=== PATIENT | female | born 1940 | race Caucasian/White ===

== ENCOUNTER 2018-02-08 13:36 | Inpatient (IN) ==
[2018-02-08] MEDS ORDERED: Isovue-370 500 ML INFUS..BTL IV ONE (13:40)
[2018-02-08] MEDS ORDERED: 0.9 % Sodium Chloride 500 ML IVC ONE (13:40)
--- NOTE | 2018-02-08 13:59 | Emergency Department Note ---
Disposition Clinical Impression: Generalized weakness, Impaired ambulation, History of lung cancer Dyspnea Qualifiers: Dyspnea type: unspecified Qualified Code(s): R06.00 - Dyspnea, unspecified Disposition: Admitted As Inpatient Condition: Good Referrals: David Garza MD [Primary Care Provider] - Forms: ED Satisfaction Letter Time of Disposition: 18:57 SOB HPI - General Chief Complaint: ED Weakness Stated Complaint: SOB Time Seen by Provider: 02/08/18 13:39 Source: patient, EMS Mode of arrival: EMS Limitations: no limitations Nursing Notes Reviewed: Yes Vital Signs Reviewed: Yes - History of Present Illness Patient is a 77-year-old female with past medical history of lung cancer. She uses 2 L nasal cannula oxygen as needed at home. She follows with physician in [place], had most recent chemotherapy about a month ago. She presents today due to generalized weakness, shortness of breath. Patient was satting 92% on room air, satting around 96% on 2 L nasal cannula which is her home dosing. She currently complains of generalized weakness, shortness breath. Denies any chest discomfort. Denies any increased cough, increased sputum production above baseline. Denies any other fevers, nausea, vomiting, diarrhea, abdominal pain. Daughter is present and states that her main concern was generalized weakness because patient cannot ambulate as well as she could at home previously , has worsened gradually over the past few days. - Related Data Home Medications Medication Instructions Recorded Confirmed Alendronate Sodium [Fosamax] 70 mg PO HAN 07/26/16 02/08/18 Enalapril Maleate [Vasotec] 10 mg PO BID PRN 07/26/16 02/08/18 Ergocalciferol (VITAMIN D2) 50,000 unit PO WE 07/26/16 02/08/18 [Vitamin D2] Metoprolol Succinate 100 mg PO DAILY PRN 07/26/16 02/08/18 Omeprazole [PriLOSEC] 20 mg PO DAILY 07/26/16 02/08/18 Potassium Chloride [K-Tab ER] 20 meq PO DAILY 07/26/16 02/08/18 Pravastatin Sodium [Pravachol] 20 mg PO HS 07/26/16 02/08/18 Topiramate [Topamax] 25 mg PO HS 07/26/16 02/08/18 clonazePAM [Klonopin] 0.5 mg PO BID PRN 07/26/16 02/08/18 Previous Rx's Medication Instructions Recorded Docusate [Colace] 100 mg PO BID PRN #60 capsule 01/15/18 OxyCODONE Immed Rel [Roxicodone 10 10 mg PO Q3-4H PRN 20 Days #120 tab 01/15/18 MG] Ciprofloxacin [Cipro] 250 mg PO BID #20 tablet 01/19/18 Ondansetron [Zofran] 8 mg PO Q8HR PRN 30 Days #90 tablet 01/29/18 Allergies Allergy/AdvReac Type Severity Reaction Status Date / Time No Known Allergies Allergy Unverified 12/11/17 11:26 All systems ED: reviewed and negative except as stated. Constitutional: Denies: fever Cardiovascular: Denies: chest pain Respiratory: Reports: dyspnea. Denies: cough Gastrointestinal: Denies: abdominal pain, nausea, vomiting, diarrhea Neurological: Denies: headache, weakness, numbness Past Medical History - Past Medical History Attestation: Yes The following information was validated with the patient. Source: patient Medical history: Reports: arthritis, cancer, hypertension, osteoporosis, TIA, other Psychiatric history: Reports: no psych history - Social History Smoking Status: Current some day smoker Smokeless Tobacco Status: Yes (pipe) Alcohol use: Reports: none Drug use: Reports: none Physical Exam - General Limitations: no limitations General appearance: alert, in no apparent distress - Head Head exam: atraumatic, normocephalic, normal inspection - Eye Eye exam: Present: normal appearance, PERRL, EOMI - ENT ENT exam: normal exam, normal oropharynx, mucous membranes moist - Neck Neck exam: Present: normal inspection, full ROM, trachea midline - Chest Chest inspection: Present: normal inspection, symmetric chest wall rise - Respiratory Respiratory exam: Present: normal lung sounds bilaterally - Cardiovascular Cardiovascular exam: Present: normal rhythm, tachycardia, normal heart sounds - Abdominal Exam Abdominal exam: Present: soft, Non-Tender. Absent: tenderness, distention, guarding, rebound, rigidity - Extremities Exam Extremities exam: Present: normal inspection, full ROM. Absent: tenderness, pedal edema - Neurological Exam Neurological exam: Present: alert, oriented X3, CN II-XII intact. Absent: motor sensory deficit - Psychiatric Psychiatric exam: Present: normal affect, normal mood - Skin Skin exam: Present: warm, dry, intact, normal color Course Course Narrative: Basic labs, EKG, troponin level ordered. Chest x-ray shows no acute cardiopulmonary process. CTA of the chest was ordered for assessment of PE. CTA shows: IMPRESSION: No evidence of pulmonary embolism. There is persistent partial collapse of the medial right upper lobe with soft tissue density in the right suprahilar region. Findings improved compared to prior studies, consistent with known malignancy. There are a few new indeterminate noncalcified nodules measuring up to 9 mm. Findings may represent mixed treatment response with new metastatic disease. No major lab abnormalities. Patient given duoneb x3, solumedrol. Still requiring 4L NC O2. Patient does generally weak and does not feel safe with ambulation. We will admit for further care at this time. Chest CTA 02/08/18 13:40 IMPRESSION: No evidence of pulmonary embolism. There is persistent partial collapse of the medial right upper lobe with soft tissue density in the right suprahilar region. Findings improved compared to prior studies, consistent with known malignancy. There are a few new indeterminate noncalcified nodules measuring up to 9 mm. Findings may represent mixed treatment response with new metastatic disease. D/ / Jessica Winston MD / Jessica Winston MD Interpreting Provider: Jessica Winston MD Chest X-Ray 02/08/18 13:40 IMPRESSION: No acute cardiopulmonary disease. Chronic postsurgical/treatment changes in the right lung. D/ / Kota Wallace MD / Kota Wallace MD Interpreting Provider: Kota Wallace MD Chest X-Ray 02/08/18 13:40 IMPRESSION: No acute cardiopulmonary disease. Chronic postsurgical/treatment changes in the right lung. D/ / Kota Wallace MD / Kota Wallace MD Interpreting Provider: Kota Wallace MD Vital Signs Temperature 99.1 F 02/08/18 13:37 Pulse Rate 119 02/08/18 13:37 Respiratory Rate 16 02/08/18 13:37 Blood Pressure 112/71 02/08/18 13:37 O2 Sat by Pulse Oximetry 94 02/08/18 13:37 Temperature 99.1 F 02/08/18 13:37 Pulse Rate 114 02/08/18 18:06 Respiratory Rate 20 02/08/18 18:06 Blood Pressure 116/75 02/08/18 18:06 O2 Sat by Pulse Oximetry 97 02/08/18 18:06 Oxygen Delivery Oxygen Delivery Aerosol Mask Shortness of Breath/Dyspnea - MDM Narrative Medical decision making narrative: Basic labs, EKG, troponin level ordered. Chest x-ray shows no acute cardiopulmonary process. CTA of the chest was ordered for assessment of PE. CTA shows: IMPRESSION: No evidence of pulmonary embolism. There is persistent partial collapse of the medial right upper lobe with soft tissue density in the right suprahilar region. Findings improved compared to prior studies, consistent with known malignancy. There are a few new indeterminate noncalcified nodules measuring up to 9 mm. Findings may represent mixed treatment response with new metastatic disease. No major lab abnormalities. Patient given duoneb x3, solumedrol. Still requiring 4L NC O2. Patient does generally weak and does not feel safe with ambulation. We will admit for further care at this time. - Medical Records Medical records reviewed: Yes I reviewed the patient's medical records. - Lab Data Lab results reviewed: Yes I reviewed the patient's lab results. Result diagrams: 02/08/18 13:50 02/08/18 13:50 Lab Results 02/08/18 02/08/18 02/08/18 Range/Units 13:40 13:40 13:41 WBC (4.3-11.1) K/mcL RBC (3.82-4.97) M/mcL Hgb (11.5-15.4) g/dL Hct (35.3-44.9) % MCV (83.0-100.0) fL MCH (28.0-33.3) pg MCHC (31.6-35.5) g/dL RDW (11.5-14.5) % Plt Count (140-400) K/mcL MPV (9.4-12.4) fL Immature Gran % (0-4) % Seg Neutrophils % % Lymphocytes % % Monocytes % % Eosinophils % % Basophils % % Neutrophils # (1.6-8.9) K/mcL Lymphocytes # (0.6-4.6) K/mcL Monocytes # (0.0-1.3) K/mcL Eosinophils # (0.0-0.6) K/mcL Basophils # (0.0-0.2) K/mcL PT 11.2 (9.4-12.1) Seconds INR 1.0 APTT 38.4 H (26.0-36.0) Seconds Sodium (136-145) mEq/L Potassium (3.5-5.1) mEq/L Chloride (98-107) mEq/L Carbon Dioxide (23-29) mEq/L BUN (8-23) mg/dL Creatinine (0.60-1.20) mg/dL Est GFR ( Amer) (> 60) Est GFR (Non-Af Amer) (> 60) BUN/Creatinine Ratio (6-26) Glucose (70-105) mg/dL Calculated Osmolality (280-300) Calcium (8.6-10.3) mg/dL Total Bilirubin 0.3 (0.3-1.0) mg/dL Direct Bilirubin 0.1 (0.0-0.2) mg/dL Indirect Bilirubin 0.2 (0.0-1.2) mg/dL AST 61 H (13-39) Units/L ALT 41 (7-52) Units/L Alkaline Phosphatase 95 (34-104) Units/L Troponin I (< 0.04) ng/mL B-Natriuretic Peptide 18 (Less than 100) pg/mL Serum Total Protein 6.5 (6.4-8.9) g/dL Albumin 3.7 (3.5-5.7) g/dL Globulin 2.8 (2.4-3.5) g/dL Albumin/Globulin Ratio 1.3 (1.1-2.2) Lipase 362 H (11-82) Units/L Urine Color (Yellow) Urine Clarity (Clear) Urine pH (5.0-8.0) pH Units Ur Specific [place] (1.010-1.025) Urine Protein (Neg-Trace) mg/dL Urine Glucose (UA) (Normal) mg/dL Urine Ketones (Negative) mg/dL Urine Blood (Negative) Urine Nitrite (Negative) Urine Bilirubin (Negative) Urine Urobilinogen (Normal) mg/dL Ur Leukocyte Esterase (Negative) Urine Microscopic RBC (0-3) per hpf Urine Microscopic WBC (0-3) per hpf Ur Squamous Epith Cells (None-Few) per lpf Urine Bacteria (None-Few) per hpf Hyaline Casts (None-Few) per lpf Ur Culture Indicated? (NO) 02/08/18 02/08/18 02/08/18 Range/Units 13:50 13:50 14:37 WBC 5.7 (4.3-11.1) K/mcL RBC 3.73 L (3.82-4.97) M/mcL Hgb 11.8 (11.5-15.4) g/dL Hct 37.0 (35.3-44.9) % MCV 99.2 (83.0-100.0) fL MCH 31.6 (28.0-33.3) pg MCHC 31.9 (31.6-35.5) g/dL RDW 15.2 H (11.5-14.5) % Plt Count 290 (140-400) K/mcL MPV 9.6 (9.4-12.4) fL Immature Gran % 1.4 (0-4) % Seg Neutrophils % 84.5 % Lymphocytes % 7.3 % Monocytes % 6.3 % Eosinophils % 0.0 % Basophils % 0.5 % Neutrophils # 4.8 (1.6-8.9) K/mcL Lymphocytes # 0.4 L (0.6-4.6) K/mcL Monocytes # 0.4 (0.0-1.3) K/mcL Eosinophils # 0.0 (0.0-0.6) K/mcL Basophils # 0.0 (0.0-0.2) K/mcL PT (9.4-12.1) Seconds INR APTT (26.0-36.0) Seconds Sodium 132 L (136-145) mEq/L Potassium 4.9 (3.5-5.1) mEq/L Chloride 103 (98-107) mEq/L Carbon Dioxide 18 L (23-29) mEq/L BUN 18 (8-23) mg/dL Creatinine 0.74 (0.60-1.20) mg/dL Est GFR ( Amer) > 60 (> 60) Est GFR (Non-Af Amer) > 60 (> 60) BUN/Creatinine Ratio 24 (6-26) Glucose 89 (70-105) mg/dL Calculated Osmolality 275 L (280-300) Calcium 9.5 (8.6-10.3) mg/dL Total Bilirubin (0.3-1.0) mg/dL Direct Bilirubin (0.0-0.2) mg/dL Indirect Bilirubin (0.0-1.2) mg/dL AST (13-39) Units/L ALT (7-52) Units/L Alkaline Phosphatase (34-104) Units/L Troponin I < 0.03 (< 0.04) ng/mL B-Natriuretic Peptide (Less than 100) pg/mL Serum Total Protein (6.4-8.9) g/dL Albumin (3.5-5.7) g/dL Globulin (2.4-3.5) g/dL Albumin/Globulin Ratio (1.1-2.2) Lipase (11-82) Units/L Urine Color Yellow (Yellow) Urine Clarity Clear (Clear) Urine pH 6.0 (5.0-8.0) pH Units Ur Specific [place] 1.021 (1.010-1.025) Urine Protein 30 H (Neg-Trace) mg/dL Urine Glucose (UA) Normal (Normal) mg/dL Urine Ketones 40 H (Negative) mg/dL Urine Blood Negative (Negative) Urine Nitrite Negative (Negative) Urine Bilirubin Small H (Negative) Urine Urobilinogen Normal (Normal) mg/dL Ur Leukocyte Esterase Negative (Negative) Urine Microscopic RBC 0-3 (0-3) per hpf Urine Microscopic WBC 0-3 (0-3) per hpf Ur Squamous Epith Cells Moderate H (None-Few) per lpf Urine Bacteria None Seen (None-Few) per hpf Hyaline Casts None Seen (None-Few) per lpf Ur Culture Indicated? NO (NO) - Radiology Data Radiology results reviewed: Yes I reviewed the patient's radiology results. Chest CTA 02/08/18 13:40 IMPRESSION: No evidence of pulmonary embolism. There is persistent partial collapse of the medial right upper lobe with soft tissue density in the right suprahilar region. Findings improved compared to prior studies, consistent with known malignancy. There are a few new indeterminate noncalcified nodules measuring up to 9 mm. Findings may represent mixed treatment response with new metastatic disease. D/ / Jessica Winston MD / Jessica Winston MD Interpreting Provider: Jessica Winston MD Chest X-Ray 02/08/18 13:40 IMPRESSION: No acute cardiopulmonary disease. Chronic postsurgical/treatment changes in the right lung. D/ / Kota Wallace MD / Kota Wallace MD Interpreting Provider: Kota Wallace MD - EKG Data EKG attestation: Yes I reviewed and interpreted this EKG. EKG results narrative: 02/08/2018 at 13:52. Sinus tachycardia. Rate 113. SC 124. QRS 74. QTC 396. Mild left axis deviation. No acute ST elevation or depression. S.B.A.R. - S.B.A.R. Situation: Demographics, MOA Background: Presenting Complaint, Relevant PMH, Meds, & Allergies Assessment: Vital Signs, Course and respsone to treatment, Exam Concerns, Patient/Family Expectation, Pertinant Lab Results Recommendation: Barrier(s) to disposition, Recommendation based on pending studies, treatments, or consults S.B.A.R. Report Given to: Dr. Hammond
--- NOTE | 2018-02-08 14:04 | Emergency Department Note ---
Disposition Clinical Impression: Dyspnea Qualifiers: Dyspnea type: unspecified Qualified Code(s): R06.00 - Dyspnea, unspecified Disposition: Admitted As Inpatient Referrals: David Garza MD [Primary Care Provider] - Forms: ED Satisfaction Letter General Adult HPI - General Chief complaint: ED Weakness Stated complaint: SOB Time Seen by Provider: 02/08/18 13:39 Source: patient, EMS Mode of arrival: EMS Limitations: no limitations - History of Present Illness Pain Scale: 0 - Related Data Home Medications Medication Instructions Recorded Confirmed Alendronate Sodium [Fosamax] 70 mg PO HAN 07/26/16 01/15/18 Clopidogrel [Plavix] 75 mg PO DAILY 07/26/16 01/15/18 Enalapril Maleate [Vasotec] 10 mg PO BID 07/26/16 01/15/18 Ergocalciferol (VITAMIN D2) 50,000 unit PO WE 07/26/16 01/15/18 [Vitamin D2] Metoprolol Succinate 100 mg PO DAILY 07/26/16 01/15/18 Omeprazole [PriLOSEC] 20 mg PO DAILY 07/26/16 01/15/18 Potassium Chloride [K-Tab ER] 20 meq PO DAILY 07/26/16 01/15/18 Pravastatin Sodium [Pravachol] 20 mg PO HS 07/26/16 01/15/18 Topiramate [Topamax] 25 mg PO HS 07/26/16 01/15/18 clonazePAM [Klonopin] 0.5 mg PO TID PRN 07/26/16 01/15/18 Previous Rx's Medication Instructions Recorded Promethazine [Phenergan] 12.5 - 25 mg PO Q6HR PRN #30 tablet 12/11/17 Docusate [Colace] 100 mg PO BID PRN #60 capsule 01/15/18 OxyCODONE Immed Rel [Roxicodone 10 10 mg PO Q3-4H PRN 20 Days #120 tab 01/15/18 MG] Sennosides [Senna] 8.6 mg PO 1-2XD PRN #60 tablet 01/15/18 Ciprofloxacin [Cipro] 250 mg PO BID #20 tablet 01/19/18 Ondansetron [Zofran] 8 mg PO Q8HR PRN 30 Days #90 tablet 01/29/18 Allergies Allergy/AdvReac Type Severity Reaction Status Date / Time No Known Allergies Allergy Unverified 12/11/17 11:26 Past Medical History - Past Medical History Medical history: Reports: arthritis, cancer, hypertension, osteoporosis, TIA, other Psychiatric history: Reports: no psych history - Social History Smoking Status: Current some day smoker Smokeless Tobacco Status: Yes (pipe) Alcohol use: Reports: none Drug use: Reports: none Physical Exam - General Limitations: no limitations General appearance: alert, in no apparent distress Course Vital Signs Temperature 99.1 F 02/08/18 13:37 Pulse Rate 119 02/08/18 13:37 Respiratory Rate 16 02/08/18 13:37 Blood Pressure 112/71 02/08/18 13:37 O2 Sat by Pulse Oximetry 94 02/08/18 13:37 Temperature 99.1 F 02/08/18 13:37 Pulse Rate 119 02/08/18 13:37 Respiratory Rate 16 02/08/18 13:37 Blood Pressure 112/71 02/08/18 13:37 O2 Sat by Pulse Oximetry 94 02/08/18 13:37 Oxygen Delivery Oxygen Delivery Room Air Attestation Statement - Attestation Attestation: I examined this patient and my medical decision-making was reviewed with the Resident Physician. I agree with the documented findings, disposition and treatment plan as described except to the extent set forth below. 77 year old femael with history of lung cancer presnts to the ED with weakness, dyspnea, productive cough with mild blood streaking and initial pulse ox when EMS rrived was 90% on RA and Hr of 60s. She is tahycardiac, and is 93% on 2LNC here. We will do cardiopulmonary sepsis wokrup now and CTA chest to rule out PE vs pneumonia. She will be admitted to medicine.
[2018-02-08 14:09] LABS: Basophils % 0.5 %; Hemoglobin 11.8 g/dL (11.5-15.4); Immature Granulocytes % 1.4 % (0-4); Lymphocytes # 0.4 K/mcL (0.6-4.6); Lymphocytes % 7.3 %; Mean Corpuscular HGB Conc 31.9 g/dL (31.6-35.5); Mean Corpuscular Hemoglobin 31.6 pg (28.0-33.3); Mean Corpuscular Volume 99.2 fL (83.0-100.0); Mean Platelet Volume 9.6 fL (9.4-12.4); Monocytes # 0.4 K/mcL (0.0-1.3); Monocytes % 6.3 %; Neutrophils # 4.8 K/mcL (1.6-8.9); Platelet Count 290 K/mcL (140-400); Red Blood Count 3.73 M/mcL (3.82-4.97); Red Cell Distribution Width 15.2 % (11.5-14.5); Segmented Neutrophils % 84.5 %
[2018-02-08 14:17] LABS: Prothrombin Time 11.2 Seconds (9.4-12.1)
[2018-02-08 14:20] LABS: Activated Partial Thrombo Time 38.4 Seconds (26.0-36.0)
[2018-02-08 14:41] LABS: Troponin I < 0.03 ng/mL (< 0.04)
[2018-02-08 14:44] LABS: Albumin 3.7 g/dL (3.5-5.7); Albumin/Globulin Ratio 1.3 (1.1-2.2); Bilirubin,Direct 0.1 mg/dL (0.0-0.2); Bilirubin,Indirect 0.2 mg/dL (0.0-1.2); Bilirubin,Total 0.3 mg/dL (0.3-1.0); Globulin 2.8 g/dL (2.4-3.5); Total Protein 6.5 g/dL (6.4-8.9)
[2018-02-08 14:46] LABS: BUN/Creatinine Ratio 24 (6-26); Blood Urea Nitrogen 18 mg/dL (8-23); Calcium 9.5 mg/dL (8.6-10.3); Carbon Dioxide 18 mEq/L (23-29); Chloride 103 mEq/L (98-107); Glucose 89 mg/dL (70-105); Osmolality,Calculated 275 (280-300); Potassium 4.9 mEq/L (3.5-5.1); Sodium 132 mEq/L (136-145); eGFR For African Americans > 60 (> 60); eGFR For Non-African Americans > 60 (> 60)
[2018-02-08 14:46] LABS: Bilirubin,Urine Small (Negative); Blood,Urine Negative (Negative); Clarity,Urine Clear (Clear); Color,Urine Yellow (Yellow); Glucose,Urine (UA) Normal (Normal); Ketones,Urine 40 mg/dL (Negative); Leukocyte Esterase,Urine Negative (Negative); Nitrite,Urine Negative (Negative); Protein,Urine 30 mg/dL (Neg-Trace); Specific Gravity,Urine 1.021 (1.010-1.025); Urobilinogen,Urine Normal (Normal)
[2018-02-08 14:50] LABS: Bacteria,Urine None Seen per hpf (None-Few); Hyaline Casts,Urine None Seen per lpf (None-Few); RBC,Urine 0-3 per hpf (0-3); Squamous Epithelial Cell,Urine Moderate per lpf (None-Few); WBC,Urine 0-3 per hpf (0-3)
[2018-02-08] MEDS ORDERED: *HR* FentaNYL (PF) 100 MCG/2 ML VIAL IVP ONE ×2 (16:17→18:36)
[2018-02-08] MEDS ORDERED: *HR* FentaNYL (PF) 100 MCG/2 ML VIAL ONE (16:19)
[2018-02-08] MEDS ORDERED: methylPREDNISolone 125 MG/2 ML VIAL IVP ONE (17:35)
[2018-02-08] MEDS ORDERED: Ipratropium/Albuterol Neb 3 ML IH ONE (17:35)
[2018-02-08] MEDS ORDERED: Naloxone 0.4 MG/ML INJ IVP PRN (20:26)
--- NOTE | 2018-02-08 20:32 | Internal Med History&Physical ---
Date of Encounter: 02/08/18 Time of Encounter: 20:30 Internal Medicine - H&P: HPI Chief complaint: Abdominal pain, shortness of breath Admitted From: Emergency Dept History of present illness: Ms. Stevens is a 77 year old female with a past medical history of small cell cancer of the lung and chronic respiratory failure using 2 L at home, osteoporosis, GERD, anxiety, came to the emergency room complaining of severe generalized weakness that started 2 days ago accompanied by shortness of breath and severe epigastric tenderness, saturation of oxygen also has dropped down to 88% and has been complaining of a dry cough. Lipase was 362 sodium was 132 AST 61 CO2 18 heartrate was 118 the pressure was 96/52 the patient has been complaining of constant nausea, not been able to eat. Feels so weak at the moment that is not able to stand up. Was given a dose of Solu-Medrol in the emergency room CT scan of the chest was performed and showed: No evidence of pulmonary embolism. There is persistent partial collapse of the medial right upper lobe with soft tissue density in the right suprahilar region. Findings improved compared to prior studies, consistent with known malignancy. There are a few new indeterminate noncalcified nodules measuring up to 9 mm. Findings may represent mixed treatment response with new metastatic disease. Past Med Surg Social Fam HX - Past Medical History Medical history: arthritis, cancer (small cell carcinoma of the lung status post chemotherapy 3 months ago, chronic respiratory failure with COPD is seen 2 L at home, left CVA, TIAs, osteoarthritis, tobacco use, ileus in the past, osteoporosis, GERD, hyperlipidemia, hypertension, anxiety), hypertension, osteoporosis, TIA, other Additional medical history: Polio Psychiatric history: no psych history - Past Surgical History Surgical History: hysterectomy, other (Left femur fracture,) Additional surgical history: knee sx - Social History Smoking Status: Current some day smoker Packs per day: 5 cigarettes daily Smokeless Tobacco Status: Yes (pipe) Alcohol use: none Drug use: none - Family History Mother Hx Family Cardiac Disorders: Yes Hx Family Cancer: Yes - Additional Family History Additional family history: Father with CHF Internal Medicine - H&P: Meds Alendronate Sodium [Fosamax] 70 mg PO HAN 07/26/16 [History] Enalapril Maleate [Vasotec] 10 mg PO BID PRN 07/26/16 [History] Ergocalciferol (VITAMIN D2) [Vitamin D2] 50,000 unit PO WE 07/26/16 [History] Metoprolol Succinate 100 mg PO DAILY PRN 07/26/16 [History] Omeprazole [PriLOSEC] 20 mg PO DAILY 07/26/16 [History] Potassium Chloride [K-Tab ER] 20 meq PO DAILY 07/26/16 [History] Pravastatin Sodium [Pravachol] 20 mg PO HS 07/26/16 [History] Topiramate [Topamax] 25 mg PO HS 07/26/16 [History] clonazePAM [Klonopin] 0.5 mg PO BID PRN 07/26/16 [History] Docusate [Colace] 100 mg PO BID PRN #60 capsule 01/15/18 [Rx] OxyCODONE Immed Rel [Roxicodone 10 MG] 10 mg PO Q3-4H PRN 20 Days #120 tab 01/15 [Rx] Ciprofloxacin [Cipro] 250 mg PO BID #20 tablet 01/19/18 [Rx] Ondansetron [Zofran] 8 mg PO Q8HR PRN 30 Days #90 tablet 01/29/18 [Rx] 3 Allergy/AdvReac Type Severity Reaction Status Date / Time No Known Allergies Allergy Unverified 12/11/17 11:26 All Systems PM: A 10-system review of systems was performed and is negative for pertinent findings except as documented above in the HPI. Review of systems: Abdominal pain, weakness, other systems out of the 10 reviewed were negative - Constitutional Vitals: Temp Pulse Resp BP Pulse Ox 99.1 F 118 18 96/58 94 02/08/18 13:37 02/08/18 19:48 02/08/18 19:48 02/08/18 19:48 02/08/18 19:48 General appearance: Present: A&O X 3 (Very dehydrated, dry mucosa) - Head Head exam: Present: atraumatic, normocephalic - Eye Eye exam: Present: PERRL, conjuntiva pink, sclera anicteric Pupils: Present: PERRL - Neck Neck exam general surgery: Present: supple, trachea midline. Absent: lymphadenopathy - Respiratory Respiratory exam: Present: CTAB. Absent: accessory muscle use, rales, rhonchi, wheezes - Cardiovascular Cardiovascular exam: Present: RRR, +S1, +S2, tachycardia. Absent: diastolic murmur, gallop, rubs, systolic murmur - GI/Abdominal GI/Abdominal exam: Present: distended, normal bowel sounds, soft, tenderness ( Epigastric tenderness), no peritoneal signs - Extremities Exam Extremities exam: Present: warm, radial pulses palpable and symmetrical. Absent : calf tenderness, cyanotic, pedal edema - Neurological Exam Neurological exam: Present: CN II-XII intact, oriented X3, no focal deficits. Absent: pronater drift, facial droop, speech deficit - Skin Skin exam: Present: dry, intact Additional comments: Severe generalized weakness Internal Med - H&P Results - Labs CBC & Chem 7: 02/08/18 13:50 02/08/18 13:50 - Assessment and plan (1) Acute and chronic respiratory failure with hypoxia Current Visit: Yes Status: Acute Assessment and plan: Acute on chronic respiratory failure possibly secondary to metastatic disease Dexamethasone IV Oxygen therapy Consider pulmonary consultation not improving Protonix IV for GI prophylaxis and subcutaneous tenderness heparin for DVT prophylaxis. The patient will be admitted as inpatient, expected stay more than 2 midnights. DNR CC arrest DNI. Time spent on this admission 40 minutes (2) Acute pancreatitis Current Visit: Yes Status: Acute Assessment and plan: Acute pancreatitis with severe dehydration, hypotension and tachycardia Nothing by mouth, IV fluids Pain control, order CT scan of the abdomen with oral contrast Zofran as needed, recheck lipase in the morning Qualifiers: Pancreatitis type: unspecified pancreatitis type Acute pancreatitis complication: unspecified Qualified Code(s): K85.90 - Acute pancreatitis without necrosis or infection, unspecified (3) Generalized weakness Current Visit: Yes Status: Acute Assessment and plan: Secondary to dehydration and hypoxia (4) Impaired ambulation Current Visit: Yes Status: Acute (5) Protein-energy malnutrition Current Visit: No Status: Acute Qualifiers: Protein-calorie malnutrition severity: unspecified severity Qualified Code( s): E46 - Unspecified protein-calorie malnutrition (6) Small cell lung cancer Current Visit: No Status: Acute (7) HTN (hypertension) Current Visit: No Status: Chronic Assessment and plan: Hold enalapril due to hypotension Qualifiers: Hypertension type: essential hypertension Qualified Code(s): I10 - Essential (primary) hypertension (8) Hyponatremia Current Visit: No Status: Resolved (9) Tobacco abuse Current Visit: Yes Status: Acute Assessment and plan: Smoking cessation counseling - Time Spent With Patient Total time spent is greater than 50% in coordination of care (as documented) at patient's floor/unit and/or counseling patient:
[2018-02-08] MEDS: D5% in 0.45% NACL 1,000 ML IVC SCH (21:00)
[2018-02-08] MEDS: Ondansetron 4 MG/2 ML VIAL IVP PRN (21:03)
[2018-02-09] MEDS: Pantoprazole 40 MG VIAL IVP SCH ×2 (01:31→05:44)
[2018-02-09] MEDS: Dexamethasone 4 MG/ML VIAL IVP SCH ×3 (01:31→19:45)
[2018-02-09] MEDS: Topiramate 25 MG TABLET PO SCH ×2 (01:32→19:45)
[2018-02-09 04:17] LABS: Hematocrit 32.1 % (35.3-44.9); Hemoglobin 10.7 g/dL (11.5-15.4); Mean Corpuscular HGB Conc 33.3 g/dL (31.6-35.5); Mean Corpuscular Hemoglobin 32.8 pg (28.0-33.3); Mean Corpuscular Volume 98.5 fL (83.0-100.0); Mean Platelet Volume 9.6 fL (9.4-12.4); Platelet Count 273 K/mcL (140-400); Red Blood Count 3.26 M/mcL (3.82-4.97); Red Cell Distribution Width 15.1 % (11.5-14.5)
[2018-02-09 04:28] LABS: BUN/Creatinine Ratio 22 (6-26); Blood Urea Nitrogen 12 mg/dL (8-23); Calcium 8.8 mg/dL (8.6-10.3); Carbon Dioxide 19 mEq/L (23-29); Chloride 104 mEq/L (98-107); Chol/HDL Ratio 5.4 (0-4.9); Cholesterol 167 mg/dL (< 200); Glucose 158 mg/dL (70-105); HDL Cholesterol 31 mg/dL (40-59); LDL Cholesterol,Calculated 110 mg/dL (0-99); Lipase 236 Units/L (11-82); Magnesium 1.7 mg/dL (1.6-2.6); Osmolality,Calculated 275 (280-300); Potassium 4.6 mEq/L (3.5-5.1); Sodium 131 mEq/L (136-145); Triglycerides 132 mg/dL (< 150); eGFR For African Americans > 60 (> 60); eGFR For Non-African Americans > 60 (> 60)
[2018-02-09] MEDS: *HR* Heparin 5,000 UNIT/ML VIAL SQ SCH ×2 (05:44→18:23)
[2018-02-09] MEDS: D5% in 0.45% NACL 1,000 ML IVC SCH ×2 (09:31→23:58)
[2018-02-09] MEDS: Ondansetron 4 MG/2 ML VIAL IVP PRN (09:37)
[2018-02-09] MEDS: clonazePAM 0.5 MG TABLET PO PRN (09:44)
--- NOTE | 2018-02-09 12:07 | Internal Med Progress Note ---
Date of Encounter: 02/09/18 Time of Encounter: 12:04 - Assessment and plan (1) Acute and chronic respiratory failure with hypoxia Current Visit: Yes Status: Acute Assessment and plan: Acute on chronic respiratory failure possibly secondary to metastatic disease Patient reports chest or status is improving She is now on 2 L nasal cannula, lungs CTA/diminished throughout AP and L Continue Dexamethasone IV story support per nasal cannula, titrate when necessary to maintain SPO2 greater than 92% Protonix IV for GI prophylaxis and subcutaneous heparin for DVT prophylaxis. (2) Impaired ambulation Current Visit: Yes Status: Acute Assessment and plan: Continues report impaired ambulation Patient reporting she has been able to ambulate for the last 2 days Additionally, reporting a functional decline Severely calorie deficient and malnutrition due to cancer; although also has a diagnosis of acute pancreatitis and dehydration which is also contributing Consult PT/OT for evaluation of functional capacity and further recommendations (3) HTN (hypertension) Current Visit: No Status: Chronic Assessment and plan: Patient hypotensive, hold anti-HTN medications at this time, continue to closely monitor consider restarting anti-HTN medications tomorrow if BP improves Qualifiers: Hypertension type: essential hypertension Qualified Code(s): I10 - Essential (primary) hypertension (4) Hyponatremia Current Visit: No Status: Resolved Assessment and plan: Hyponatremia, serum sodium of 131, asymptomatic. Continue to monitor (5) Protein-energy malnutrition Current Visit: No Status: Acute Assessment and plan: History of cancer, reporting decreased appetite over the last couple of months with weight loss Acute pancreatitis identified per CT and elevated lipase on labs Patient does not wish to be nothing by mouth as stated above Consult to nutritional services Supplementation with Ensure Qualifiers: Protein-calorie malnutrition severity: unspecified severity Qualified Code( s): E46 - Unspecified protein-calorie malnutrition (6) Small cell lung cancer Current Visit: No Status: Acute Assessment and plan: History of small cell lung cancer. Being treated at [place] [facility] Last appointment 01/15/[address] Duffy Last [place] [address] cycles New indeterminate nodule suggestive of mixed treatment response or new metastatic disease noted on CT of chest Oncology to see in consultation (7) Generalized weakness Current Visit: Yes Status: Acute Assessment and plan: Secondary to dehydration and hypoxia Continuing to report profound weakness Multiple sclerotic lesions found and pelvis and right femur; similar to previous findings New indeterminate nodules digesting mixed treatment response or new metastatic disease Cysts with decreased appetite, weight loss, and functional decline could be result of progression of cancer (8) Acute pancreatitis Current Visit: Yes Status: Acute Assessment and plan: Acute pancreatitis with severe dehydration, hypotension and tachycardia on arrival Dehydration improving, with IVF Lipase 236 today Reporting nausea is improving Continue pain control measures CT scan of the abdomen shows mild stranding adjacent to the pancreatic head Continue antiemetics as needed D/W pancreatitis and nothing by mouth status with patient and family The patient and family does not wish for her to remain nothing by mouth due to severe calorie and malnutrition secondary to cancer Adding Ensure supplementation and regular diet as tolerated Should nausea/vomiting resume and/or lipase increase will return patient to nothing by mouth status Qualifiers: Pancreatitis type: unspecified pancreatitis type Acute pancreatitis complication: unspecified Qualified Code(s): K85.90 - Acute pancreatitis without necrosis or infection, unspecified (9) Tobacco abuse Current Visit: Yes Status: Acute Assessment and plan: Counseled patient on smoking cessation (10) Abnormal finding on CT scan Current Visit: Yes Status: Acute Assessment and plan: CTA CHEST No evidence of pulmonary embolism. There is persistent partial collapse of the medial right upper lobe with soft tissue density in the right suprahilar region. Findings improved compared to prior studies, consistent with known malignancy. There are a few new indeterminate noncalcified nodules measuring up to 9 mm. Findings may represent mixed treatment response with new metastatic disease. D/W oncology; oncology will see in consultation - Time Spent With Patient Total time spent is greater than 50% in coordination of care (as documented) at patient's floor/unit and/or counseling patient: Greater than 35 minutes - Subjective Interval history: Ms. Stevens is a 77-year-old female who came to the emergency room complaining of severe generalized weakness that started 2 days ago accompanied by shortness of breath and severe epigastric tenderness and hypoxia. Found to have SPO2 of 80% in the ED. History of chronic respiratory failure secondary to COPD and small cell carcinoma. Patient's and examined at bedside today. No acute changes overnight. Continued to report shortness of breath reports that it is improving. However her biggest concern is generalized weakness and she is reporting that she is unable to ambulate for the last 2 days. - Constitutional Vitals: Temp Pulse Resp BP Pulse Ox 97.9 F 75 14 93/60 97 02/09/18 11:09 02/09/18 11:09 02/09/18 11:02/09/18 11:09 02/09/18 11:09 General appearance: Present: cachectic, A&O X 3 (Very dehydrated, dry mucosa), pleasant, no acute distress, underweight, loss of weight, answers questions appropriately Exam: Overall ill appearing 77-year-old female with active small cell carcinoma the lung - Head Head exam: Present: atraumatic, normocephalic - Eye Eye exam: Present: EOMI, PERRL, conjuntiva pink, sclera anicteric Pupils: Present: PERRL - Neck Neck exam general surgery: Present: supple, trachea midline. Absent: lymphadenopathy - Respiratory Respiratory exam: Present: decreased breath sounds, CTAB, prolonged expiratory phase. Absent: accessory muscle use, chest wall tenderness, rales, respiratory distress, rhonchi, wheezes, tachypnea - Cardiovascular Cardiovascular exam: Present: RRR, +S1, +S2. Absent: diastolic murmur, gallop, rubs, systolic murmur - GI/Abdominal GI/Abdominal exam: Present: normal bowel sounds, soft, no peritoneal signs. Absent: distended, tenderness - Extremities Exam Extremities exam: Present: warm, radial pulses palpable and symmetrical. Absent : calf tenderness, cyanotic, pedal edema - Expanded Lower Extremities Exam Gait: Present: not tested/not observed - Neurological Exam Neurological exam: Present: CN II-XII intact, oriented X3, no focal deficits. Absent: strengths equal and symetr throughout, pronater drift, facial droop, speech deficit - Expanded Neurological Exam Neuro motor strength exam: LLE: 2/1, RLE: 3 - Psychiatric Psychiatric exam: Present: flat affect - Skin Skin exam: Present: dry, intact Internal Medicine: Result - Labs CBC & Chem 7: 02/09/18 03:49 02/09/18 03:49 Labs: Short CBC 02/09/18 Range/Units 03:49 WBC 5.2 (4.3-11.1) K/mcL Hgb 10.7 L (11.5-15.4) g/dL Hct 32.1 L (35.3-44.9) % Plt Count 273 (140-400) K/mcL [facility] 02/09/18 03:49 Sodium 131 L Potassium 4.6 Chloride 104 Carbon Dioxide 19 L BUN 12 Creatinine 0.55 L Glucose 158 H Calcium 8.8 - ABG Interpretation ABG results: PT/INR, D-dimer PT 11.2 Seconds (9.4-12.1) 02/08/18 13:40 - Impressions Impressions Chest CTA 02/08/18 13:40 IMPRESSION: No evidence of pulmonary embolism. There is persistent partial collapse of the medial right upper lobe with soft tissue density in the right suprahilar region. Findings improved compared to prior studies, consistent with known malignancy. There are a few new indeterminate noncalcified nodules measuring up to 9 mm. Findings may represent mixed treatment response with new metastatic disease. D/ / Jessica Winston MD / Jessica Winston MD Interpreting Provider: Jessica Winston MD Chest X-Ray 02/08/18 13:40 IMPRESSION: No acute cardiopulmonary disease. Chronic postsurgical/treatment changes in the right lung. D/ / Kota Wallace MD / Kota Wallace MD Interpreting Provider: Kota Wallace MD Abdomen/Pelvis CT 02/08/18 20:17 IMPRESSION: 1. Biliary ductal dilatation appears stable from prior imaging. This may be due to underlying acute or chronic pancreatitis. 2. Chronic pancreatitis is noted with inflammation around the pancreatic head suggesting more acute process as well. Correlate with laboratory and clinical findings. 3. Multiple renal cysts, some of which are complex but stable. If indicated, outpatient follow-up CT or MRI may be performed for more sensitive evaluation. 4. Multiple sclerotic lesions in the pelvis and right femur, stable but of uncertain significance. Review of imaging from a prior PET-CT 03/21/2017 suggest that these likely are metastatic in nature. Recommend correlation with history. D/ / Bob Salinas MD / Bob Salinas MD Interpreting Provider: Bob Salinas MD Consult Discharge Plan - Plan Referrals: David Garza MD [Primary Care Provider] -
[2018-02-09] MEDS: OXYCODONE Oral CONC 10 MG/0.5 ML ORAL.SYG SL PRN ×3 (12:25→21:22)
[2018-02-09] MEDS ORDERED: *HR* Promethazine 25 MG/ML VIAL IVP PRN (12:40)
[2018-02-09] MEDS: Melatonin 3 MG TABLET PO PRN (23:54)
[2018-02-10] MEDS: OXYCODONE Oral CONC 10 MG/0.5 ML ORAL.SYG SL PRN ×4 (04:08→17:54)
[2018-02-10] MEDS: Pantoprazole 40 MG VIAL IVP SCH (05:44)
[2018-02-10] MEDS: *HR* Heparin 5,000 UNIT/ML VIAL SQ SCH ×2 (05:44→17:54)
[2018-02-10 06:04] LABS: Basophils % 0.3 %; Eosinophils % 0.2 %; Hematocrit 35.6 % (35.3-44.9); Hemoglobin 11.4 g/dL (11.5-15.4); Immature Granulocytes % 3.5 % (0-4); Lymphocytes # 0.4 K/mcL (0.6-4.6); Lymphocytes % 5.6 %; Mean Corpuscular Hemoglobin 31.8 pg (28.0-33.3); Mean Corpuscular Volume 99.4 fL (83.0-100.0); Mean Platelet Volume 10.6 fL (9.4-12.4); Monocytes # 0.3 K/mcL (0.0-1.3); Neutrophils # 5.3 K/mcL (1.6-8.9); Platelet Count 281 K/mcL (140-400); Red Blood Count 3.58 M/mcL (3.82-4.97); Red Cell Distribution Width 15.3 % (11.5-14.5); Segmented Neutrophils % 85.4 %
--- NOTE | 2018-02-10 06:12 | Internal Med Progress Note ---
Date of Encounter: 02/10/18 Time of Encounter: 06:10 - Assessment and plan (1) Acute and chronic respiratory failure with hypoxia Current Visit: Yes Status: Acute Assessment and plan: Acute on chronic respiratory failure possibly secondary to metastatic disease CTA chest, negative for PE or acute pulmonary process. However CTA did reveal few new indeterminate noncalcified nodules measuring up to 9 mm Findings may represent mixed treatment response with new metastatic disease Patient now on baseline 2 L NC, no respiratory distress lungs CTA/diminished throughout AP and L -Continue Dexamethasone IV, -respiratory support per nasal cannula, -titrate when necessary to maintain SPO2 greater than 92% -Protonix IV for GI prophylaxis -subcutaneous heparin for DVT prophylaxis -Oncology will see in consultation-awaiting further recommendations as to whether or not this is new metastatic disease (2) Impaired ambulation Current Visit: Yes Status: Acute Assessment and plan: BLE strength improving, patient reporting that she does not feel like she is as weakness yesterday We will likely continue to have difficulty with ambulation. Continuing to report intermittent left hip pain; etiology unclear The patient denies any falls or trauma. Should left hip pain continue consider diagnostic imaging as the patient already has metastatic lesions on right femur ; will D/W oncology Out of bed today TID with meals; instructed to increase activity as tolerated with assistance Consult PT/OT for evaluation of functional capacity and further recommendations (3) HTN (hypertension) Current Visit: No Status: Chronic Assessment and plan: Patient with history of hypertension. Had mild hypotension yesterday, BP medications held Hypotension has improved this time Continue holding anti-HTN medications as BP is currently well-controlled continue to closely monitor consider restarting anti-HTN medications as BP continues to improve Qualifiers: Hypertension type: essential hypertension Qualified Code(s): I10 - Essential (primary) hypertension (4) Protein-energy malnutrition Current Visit: No Status: Acute Assessment and plan: History of cancer, reporting decreased appetite over the last couple of months with weight loss Acute pancreatitis identified per CT and elevated lipase on labs, further contributing to protein/calorie malnutrition Reporting nausea improving, regular diet with supplementation as tolerated, consult to nutritional services for further recommendations Qualifiers: Protein-calorie malnutrition severity: unspecified severity Qualified Code( s): E46 - Unspecified protein-calorie malnutrition (5) Small cell lung cancer Current Visit: No Status: Acute Assessment and plan: History of small cell lung cancer. Being treated by Dr. Quintana but follows with Dr. Duffy at [facility] as well. Last appointment 01/15/[address] Duffy. Patient to follow up with Dr. Quintana, on February [id number]. Last [place]atin/[place] [address] cycles. Continue report weight loss and concern for functional decline. New indeterminate nodule suggestive of mixed treatment response or new metastatic disease noted on CT of chest. -Oncology to see in consultation in regards to possible new metastatic disease noted on CT and increasing weight loss and functional decline. -I have offered to consult palliative care; patient and family declined - (6) Generalized weakness Current Visit: Yes Status: Acute Assessment and plan: Reports weakness is much better today Per my examination her bilateral lower Extremity is appear much stronger Weakness likely caused by protein/calorie malnutrition with dehydration 2/to acute pancreatitis Continuing to report a decreased appetite Additionally she is reporting weight loss, and concern for functional decline -PT/OT to see -Nurse navigator consults, addiction social worker consult -Patient offered palliative care consult but declined -Would likely benefit from increase in home services with home PT/OT if able to achieve (7) Acute pancreatitis Current Visit: Yes Status: Acute Assessment and plan: Acute pancreatitis with severe dehydration, hypotension and tachycardia on arrival Dehydration improving, with IVF, Patient reporting that nausea is improving, Lipase improving today 184 CT scan of the abdomen shows mild stranding adjacent to the pancreatic head D/W patient and family that with DX of pancreatitis patient would benefit from NPO diet The patient and family does not wish for her to remain NPO due to severe calorie and malnutrition secondary to cancer Continue Ensure supplementation and diet as tolerated -Continue antiemetics -Continue pain control measures -Change IVF to 0.9% normal saline at 60 mL per hour -With improvement and nausea, encourage oral intake as tolerated Qualifiers: Pancreatitis type: unspecified pancreatitis type Acute pancreatitis complication: unspecified Qualified Code(s): K85.90 - Acute pancreatitis without necrosis or infection, unspecified (8) Tobacco abuse Current Visit: Yes Status: Acute Assessment and plan: Counseled patient on smoking cessation (9) Abnormal finding on CT scan Current Visit: Yes Status: Acute Assessment and plan: CTA CHEST-few indeterminate noncalcified nodules measuring up to 9 mm. Findings may represent mixed treatment response with new metastatic disease. D/W oncology; oncology following in consultation - Time Spent With Patient Total time spent is greater than 50% in coordination of care (as documented) at patient's floor/unit and/or counseling patient: 25 - 35 minutes - Subjective Interval history: Admitted with generalized weakness, shortness of breath or dehydration and nausea. Found to have acute pancreatitis. No acute changes overnight. Patient seen and examined at bedside today, reporting weakness is improving, no longer short of breath and on baseline oxygen. Continuing to endorse nausea but is able to tolerate oral intake. No additional concerns at this time. Denies any further questions or needs - Constitutional Vitals: Temp Pulse Resp BP Pulse Ox 98 F 91 16 117/78 93 02/10/18 04:28 02/10/18 04:28 02/10/18 04:28 02/10/18 04:28 02/10/18 04:28 General appearance: Present: cachectic, A&O X 3 (Very dehydrated, dry mucosa), pleasant, no acute distress, underweight, loss of weight, answers questions appropriately - Head Head exam: Present: atraumatic, normocephalic - Eye Eye exam: Present: PERRL, conjuntiva pink, sclera anicteric Pupils: Present: PERRL - Neck Neck exam general surgery: Present: supple, trachea midline. Absent: lymphadenopathy - Respiratory Respiratory exam: Present: CTAB. Absent: accessory muscle use, rales, rhonchi, wheezes - Cardiovascular Cardiovascular exam: Present: RRR, +S1, +S2. Absent: diastolic murmur, gallop, rubs, systolic murmur - GI/Abdominal GI/Abdominal exam: Present: normal bowel sounds, soft, no peritoneal signs. Absent: distended, tenderness - Extremities Exam Extremities exam: Present: warm, radial pulses palpable and symmetrical. Absent : calf tenderness, cyanotic, pedal edema - Neurological Exam Neurological exam: Present: CN II-XII intact, oriented X3, no focal deficits. Absent: pronater drift, facial droop, speech deficit - Expanded Neurological Exam Neuro motor strength exam: LLE: 3, RLE: 3 - Skin Skin exam: Present: dry, intact Internal Medicine: Result - Labs CBC & Chem 7: 02/10/18 04:19 02/09/18 03:49 Labs: Short CBC 02/10/18 Range/Units 04:19 WBC 6.3 (4.3-11.1) K/mcL Hgb 11.4 L (11.5-15.4) g/dL Hct 35.6 (35.3-44.9) % Plt Count 281 (140-400) K/mcL Neutrophils # 5.3 (1.6-8.9) K/mcL - ABG Interpretation ABG results: PT/INR, D-dimer PT 11.2 Seconds (9.4-12.1) 02/08/18 13:40 Consult Discharge Plan - Plan Referrals: David Garza MD [Primary Care Provider] -
[2018-02-10 06:19] LABS: BUN/Creatinine Ratio 29 (6-26); Blood Urea Nitrogen 16 mg/dL (8-23); Carbon Dioxide 20 mEq/L (23-29); Chloride 105 mEq/L (98-107); Glucose 145 mg/dL (70-105); Osmolality,Calculated 284 (280-300); Potassium 4.2 mEq/L (3.5-5.1); Sodium 135 mEq/L (136-145); eGFR For African Americans > 60 (> 60); eGFR For Non-African Americans > 60 (> 60)
[2018-02-10] MEDS: 0.9 % Sodium Chloride 1,000 ML IVC SCH (07:49)
[2018-02-10] MEDS: Dexamethasone 4 MG/ML VIAL IVP SCH ×2 (07:49→20:11)
[2018-02-10] MEDS: Ondansetron 4 MG/2 ML VIAL IVP PRN (20:11)
[2018-02-10] MEDS: Topiramate 25 MG TABLET PO SCH (20:11)
[2018-02-10] MEDS: clonazePAM 0.5 MG TABLET PO PRN (20:11)
[2018-02-10] MEDS: Melatonin 3 MG TABLET PO PRN (20:12)
[2018-02-11] MEDS: D5% in 0.45% NACL 1,000 ML IVC SCH ×2 (00:10→00:11)
[2018-02-11] MEDS: 0.9 % Sodium Chloride 1,000 ML IVC SCH ×2 (01:46→18:19)
[2018-02-11] MEDS: OXYCODONE Oral CONC 10 MG/0.5 ML ORAL.SYG SL PRN ×5 (02:30→17:43)
[2018-02-11] MEDS: clonazePAM 0.5 MG TABLET PO PRN ×2 (02:33→08:26)
[2018-02-11 05:55] LABS: Basophils % 0.4 %; Hematocrit 34.5 % (35.3-44.9); Hemoglobin 10.9 g/dL (11.5-15.4); Immature Granulocytes % 4.7 % (0-4); Lymphocytes # 0.3 K/mcL (0.6-4.6); Lymphocytes % 6.5 %; Mean Corpuscular HGB Conc 31.6 g/dL (31.6-35.5); Mean Corpuscular Hemoglobin 31.1 pg (28.0-33.3); Mean Corpuscular Volume 98.3 fL (83.0-100.0); Mean Platelet Volume 10.3 fL (9.4-12.4); Monocytes # 0.3 K/mcL (0.0-1.3); Monocytes % 6.5 %; Neutrophils # 4.2 K/mcL (1.6-8.9); Platelet Count 257 K/mcL (140-400); Red Blood Count 3.51 M/mcL (3.82-4.97); Red Cell Distribution Width 15.1 % (11.5-14.5); Segmented Neutrophils % 81.9 %
[2018-02-11] MEDS: Pantoprazole 40 MG VIAL IVP SCH (05:55)
[2018-02-11] MEDS: *HR* Heparin 5,000 UNIT/ML VIAL SQ SCH ×2 (05:55→17:46)
[2018-02-11 06:04] LABS: BUN/Creatinine Ratio 33 (6-26); Blood Urea Nitrogen 15 mg/dL (8-23); Calcium 8.9 mg/dL (8.6-10.3); Carbon Dioxide 22 mEq/L (23-29); Chloride 106 mEq/L (98-107); Glucose 109 mg/dL (70-105); Osmolality,Calculated 281 (280-300); Sodium 135 mEq/L (136-145); eGFR For African Americans > 60 (> 60); eGFR For Non-African Americans > 60 (> 60)
[2018-02-11] MEDS: Dexamethasone 4 MG/ML VIAL IVP SCH ×2 (08:22→21:51)
[2018-02-11] MEDS: Ondansetron 4 MG/2 ML VIAL IVP PRN (08:22)
[2018-02-11] MEDS: Ondansetron ODT 4 MG TAB.RAPDIS SL PRN ×2 (11:38→17:44)
--- NOTE | 2018-02-11 13:22 | Oncology Inp Consult Note ---
<Tong Sabillon S - Last Filed: 02/12/18 17:51> Date of Encounter: 02/12/18 - Data of Consult Requesting Physician: Jose E Lewis Primary Care Provider: David Garza MD - Consult Narrative History of present illness: Ms. Stevens is a 77 year old female Medications and Allergies Alendronate Sodium [Fosamax] 70 mg PO HAN 07/26/16 [History] Enalapril Maleate [Vasotec] 10 mg PO BID PRN 07/26/16 [History] Ergocalciferol (VITAMIN D2) [Vitamin D2] 50,000 unit PO WE 07/26/16 [History] Metoprolol Succinate 100 mg PO DAILY PRN 07/26/16 [History] Omeprazole [PriLOSEC] 20 mg PO DAILY 07/26/16 [History] Potassium Chloride [K-Tab ER] 20 meq PO DAILY 07/26/16 [History] Pravastatin Sodium [Pravachol] 20 mg PO HS 07/26/16 [History] Topiramate [Topamax] 25 mg PO HS 07/26/16 [History] clonazePAM [Klonopin] 0.5 mg PO BID PRN 07/26/16 [History] Docusate [Colace] 100 mg PO BID PRN #60 capsule 01/15/18 [Rx] OxyCODONE Immed Rel [Roxicodone 10 MG] 10 mg PO Q3-4H PRN 20 Days #120 tab 01/15 [Rx] Ciprofloxacin [Cipro] 250 mg PO BID #20 tablet 01/19/18 [Rx] Ondansetron [Zofran] 8 mg PO Q8HR PRN 30 Days #90 tablet 01/29/18 [Rx] 3 Allergy/AdvReac Type Severity Reaction Status Date / Time No Known Allergies Allergy Unverified 12/11/17 11:26 Oncology - Exam - Constitutional Vitals: Temp Pulse Resp BP Pulse Ox 98.2 F 80 16 128/87 96 02/12/18 07:11 02/12/18 07:11 02/12/18 07:11 02/12/18 07:11 02/12/18 07:11 Oncology - Results Labs: 3 02/12/18 02/12/18 02/11/18 05:07 05:07 04:58 WBC 4.5 RBC 3.61 L Hgb 11.7 Hct 34.7 L MCV 96.1 MCH 32.4 MCHC 33.7 RDW 14.6 H Plt Count 243 MPV 10.4 Immature Gran % Seg Neutrophils % Lymphocytes % Monocytes % Eosinophils % Basophils % Neutrophils # Lymphocytes # Monocytes # Eosinophils # Basophils # Nucleated RBCs/100 WBC 0.4 H Sodium 135 L 135 L Potassium 4.3 4.0 Chloride 105 106 Carbon Dioxide 23 22 L BUN 13 15 Creatinine 0.50 L 0.46 L Est GFR ( Amer) > 60 > 60 Est GFR (Non-Af Amer) > 60 > 60 BUN/Creatinine Ratio 26 33 H Glucose 100 109 H Calculated Osmolality 280 281 Calcium 8.6 8.9 Magnesium Triglycerides Cholesterol LDL Cholesterol, Calc VLDL Cholesterol, Calc HDL Cholesterol Cholesterol/HDL Ratio Lipase 3 02/11/18 02/10/18 02/10/18 04:58 04:19 04:19 WBC 5.1 RBC 3.51 L Hgb 10.9 L Hct 34.5 L MCV 98.3 MCH 31.1 MCHC 31.6 RDW 15.1 H Plt Count 257 MPV 10.3 Immature Gran % 4.7 H Seg Neutrophils % 81.9 Lymphocytes % 6.5 Monocytes % 6.5 Eosinophils % 0.0 Basophils % 0.4 Neutrophils # 4.2 Lymphocytes # 0.3 L Monocytes # 0.3 Eosinophils # 0.0 Basophils # 0.0 Nucleated RBCs/100 WBC Sodium 135 L Potassium 4.2 Chloride 105 Carbon Dioxide 20 L BUN 16 Creatinine 0.55 L Est GFR ( Amer) > 60 Est GFR (Non-Af Amer) > 60 BUN/Creatinine Ratio 29 H Glucose 145 H Calculated Osmolality 284 Calcium 9.0 Magnesium Triglycerides Cholesterol LDL Cholesterol, Calc VLDL Cholesterol, Calc HDL Cholesterol Cholesterol/HDL Ratio Lipase 184 H 3 02/10/18 02/09/18 02/09/18 04:19 03:49 03:49 WBC 6.3 5.2 RBC 3.58 L 3.26 L Hgb 11.4 L 10.7 L Hct 35.6 32.1 L MCV 99.4 98.5 MCH 31.8 32.8 MCHC 32.0 33.3 RDW 15.3 H 15.1 H Plt Count 281 273 MPV 10.6 9.6 Immature Gran % 3.5 Seg Neutrophils % 85.4 Lymphocytes % 5.6 Monocytes % 5.0 Eosinophils % 0.2 Basophils % 0.3 Neutrophils # 5.3 Lymphocytes # 0.4 L Monocytes # 0.3 Eosinophils # 0.0 Basophils # 0.0 Nucleated RBCs/100 WBC Sodium 131 L Potassium 4.6 Chloride 104 Carbon Dioxide 19 L BUN 12 Creatinine 0.55 L Est GFR ( Amer) > 60 Est GFR (Non-Af Amer) > 60 BUN/Creatinine Ratio 22 Glucose 158 H Calculated Osmolality 275 L Calcium 8.8 Magnesium 1.7 Triglycerides 132 Cholesterol 167 LDL Cholesterol, Calc 110 H VLDL Cholesterol, Calc 26 HDL Cholesterol 31 L Cholesterol/HDL Ratio 5.4 H Lipase 236 H Consult Discharge Plan - Plan Referrals: David Garza MD [Primary Care Provider] - 02/19/18 1:30 pm - Attending Attestation 1. Extensive stage small cell lung cancer. She received treatment in [place]. Her disease was in the right lung with right pleural-based disease. Her metastasis are mainly in the bone with sclerotic bone metastases in the pelvis 03/16/2017: CT guided right lung biopsy confirmed small cell lung cancer Treatment: 2017: Carboplatin/etoposide 4 cycles (Dr. Quintana) 08/2017: Declined PCI and consolidative thoracic radiotherapy with Dr. Hirsch She had recurrence in the right lung but no major disease elsewhere. She declined to have systemic chemotherapy at that time 11/14/2017 - 11/20/2017: Palliative radiotherapy to the right lung, 2000 cGy in 5 fractions Currently she is admitted with increased shortness of breath. Artery getting Decadron from IV twice a day 2. CT angiogram chest showed right upper lobe collapse from postobstructive pneumonia. CT abdomen and pelvis showed sclerotic bone metastases in the pelvis and right hip 3. She has pain in the lower back and pain in the right hip with walking he had she is able to undergo some physical therapy MRI right hip on 02/11/2018 showed extensive sclerotic bone metastases the lower lumbar spine and right femur with extra she is involvement causing edema into the gluteus muscle. Dr. Duffy reviewed the MRI and no role for radiation at this time 4. Anxiety and increased pain Patient is taking Klonopin 0.5 mg every 4 hours when necessary at home and will increase that from twice a day to every 4 hours when necessary His also on oxycodone liquid 10 mg and may increase the dose as needed The patient and the daughter understand increasing the pain medication especially with benzodiazepine can decrease the breathing 5. Discussed in detail about future systemic treatment She may be a candidate for immunotherapy with combination of ipilimumab and nivolumab. She is interested. We will discuss this further as an outpatient <Candice Byrne - Last Filed: 02/12/18 18:41> Date of Encounter: 02/11/18 Time of Encounter: 12:30 Assessment and Plan (1) Small cell lung cancer Status: Acute Assessment and plan: Extensive stage small cell lung cancer, treatment intent palliative. As detailed in HPI, s/p 4 cycles carboplatin/etoposide 2016 and palliative chest radiotherapy November 2017. Patient with Dr. Quintana with [facility]. Patients ex- and daughter at bedside express wish to establish care closer to home as the drive to [place] is becoming quite difficult for patient , I will assist in this process. Discussed recent imaging which reveals persistent partial collapse of the medial right upper lobe with soft tissue density in the right suprahilar region , improved compared to prior studies, consistent with known malignancy, in addition to a few new indeterminate noncalcified nodules measuring up to 9 mm. Findings may represent mixed treatment response with new metastatic disease. She also has known sclerotic lesions in the pelvis and right femur which appear to be stable on most recent imaging. Patient and patients family understand the palliative nature of her treatment. As noted in HPI, Dr. Quintana has not previously recommended palliative chemotherapy treatment secondary to her poor performance status. Discussed palliative care consultation and the Hospice philosophy however, patient declines need for hospice at this time and states she will ask for hospice when the time is right. She lives at home with her ex-, her son is planned to move in soon. She has 24/7 care at home and is symptomatically quite comfortable. Dr. Sabillon to assess patient further on outpatient basis and determine potential role for palliative immunotherapy. She does report increased right hip pain since her admission. Will obtain MRI right hip to assess extent of osseous metastasis or potential role for radiotherapy. As noted above, will assist in referral to [facility] with Dr. Sabillon to allow for care closer to home. Please refer to Dr. Sabillon's attestation for additional details. - Data of Consult Patient: known to practice within the last 3 years Consult date: 02/11/18 Requesting Physician: Jose E Lewis Primary Care Provider: David Garza MD - Consult Narrative Reason for consult: Extensive stage small cell lung cancer History of present illness: Ms. Stevens is a 77 year old female diagnosed with Extensive stage small cell lung cancer diagnosed February 2017 with pleural based and osseous metastatic disease. She received 4 cycles of carboplatin/etoposide with Dr. Quintana with [facility]. In August, she had declined PCI and consolidative thoracic radiotherapy with Dr. Hirsch. She achieved complete radiographic response with subsequent local recurrence causing increased shortness of breath, partial lobar collapse, and pain. She is local to [place] and was referred to Dr. Duffy earlier this year for palliative radiotherapy to the right lung which was completed 11/14/2017 - 2017. Her most recent note from her clinic visit with Dr. Quintana discussed the palliative intent nature of her treatment. He did not previously recommend palliative systemic treatment secondary to her poor performance status. She presented to the ER on 02/08/2018 with report of generalized weakness, epigastric pain and SOB. Patients daughter reports her pain, nausea and vomiting had been worsening over the past 3 weeks prior to her admission. She was admitted with acute pancreatitis, Lipase 362. Past Med Surg Social Fam HX - Past Medical History Medical history: arthritis, cancer, hypertension, osteoporosis, TIA, other Additional medical history: Polio Psychiatric history: no psych history - Past Surgical History Surgical History: hysterectomy, other Additional surgical history: knee sx - Social History Smoking Status: Current some day smoker Packs per day: 3 cigarettes daily Smokeless Tobacco Status: Yes (pipe) Alcohol use: none Drug use: none - Family History Mother Hx Family Cardiac Disorders: Yes Hx Family Cancer: Yes Constitutional: Present: anorexia, fatigue, weakness, weight loss. Absent: chills, fever(s), frequent falls Eyes: Absent: change in vision Nose, mouth and throat: Absent: dysphagia Cardiovascular: Absent: chest pain Respiratory: Present: dyspnea. Absent: cough Gastrointestinal: Present: as per HPI, abdominal pain, nausea, vomiting. Absent : change in bowel habits, hematemesis, hematochezia Genitourinary: Absent: dysuria Musculoskeletal: Present: muscle weakness Integumentary: Absent: wounds Neurological: Absent: focal weakness, frequent falls Hematologic/Lymphatic: Present: as per HPI Oncology - Exam - Constitutional Vitals: Temp Pulse Resp BP Pulse Ox 98.9 F 79 19 134/85 95 02/11/18 11:52 02/11/18 11:52 02/11/18 11:52 02/11/18 11:52 02/11/18 11:52 General appearance: cooperative, no acute distress, thin, no febrile - Head Head exam: Present: atraumatic - ENT ENT exam: Present: mucous membranes moist - Respiratory Respiratory exam: Present: CTAB. Absent: respiratory distress - Cardiovascular Cardiovascular exam: Present: RRR, +S1, +S2 - GI/Abdominal GI/Abdominal exam: Present: hypoactive bowel sounds, soft. Absent: guarding, rebound, tenderness - Extremities Exam Extremities exam: Present: normal inspection. Absent: calf tenderness - Neurological Exam Neurological exam: Present: alert, oriented X3, no focal deficits, strengths equal and symetr throughout - Psychiatric Psychiatric exam: Present: normal affect, normal mood - Skin Skin exam: Present: dry, intact, normal color, warm Oncology - Results Labs: 3 02/11/18 02/11/18 02/10/18 04:58 04:58 04:19 WBC 5.1 RBC 3.51 L Hgb 10.9 L Hct 34.5 L MCV 98.3 MCH 31.1 MCHC 31.6 RDW 15.1 H Plt Count 257 MPV 10.3 Immature Gran % 4.7 H Seg Neutrophils % 81.9 Lymphocytes % 6.5 Monocytes % 6.5 Eosinophils % 0.0 Basophils % 0.4 Neutrophils # 4.2 Lymphocytes # 0.3 L Monocytes # 0.3 Eosinophils # 0.0 Basophils # 0.0 Sodium 135 L Potassium 4.0 Chloride 106 Carbon Dioxide 22 L BUN 15 Creatinine 0.46 L Est GFR ( Amer) > 60 Est GFR (Non-Af Amer) > 60 BUN/Creatinine Ratio 33 H Glucose 109 H Calculated Osmolality 281 Calcium 8.9 Magnesium Triglycerides Cholesterol LDL Cholesterol, Calc VLDL Cholesterol, Calc HDL Cholesterol Cholesterol/HDL Ratio Lipase 184 H 3 02/10/18 02/10/18 02/09/18 04:19 04:19 03:49 WBC 6.3 RBC 3.58 L Hgb 11.4 L Hct 35.6 MCV 99.4 MCH 31.8 MCHC 32.0 RDW 15.3 H Plt Count 281 MPV 10.6 Immature Gran % 3.5 Seg Neutrophils % 85.4 Lymphocytes % 5.6 Monocytes % 5.0 Eosinophils % 0.2 Basophils % 0.3 Neutrophils # 5.3 Lymphocytes # 0.4 L Monocytes # 0.3 Eosinophils # 0.0 Basophils # 0.0 Sodium 135 L 131 L Potassium 4.2 4.6 Chloride 105 104 Carbon Dioxide 20 L 19 L BUN 16 12 Creatinine 0.55 L 0.55 L Est GFR ( Amer) > 60 > 60 Est GFR (Non-Af Amer) > 60 > 60 BUN/Creatinine Ratio 29 H 22 Glucose 145 H 158 H Calculated Osmolality 284 275 L Calcium 9.0 8.8 Magnesium 1.7 Triglycerides 132 Cholesterol 167 LDL Cholesterol, Calc 110 H VLDL Cholesterol, Calc 26 HDL Cholesterol 31 L Cholesterol/HDL Ratio 5.4 H Lipase 236 H 3 02/09/ 03:49 WBC 5.2 RBC 3.26 L Hgb 10.7 L Hct 32.1 L MCV 98.5 MCH 32.8 MCHC 33.3 RDW 15.1 H Plt Count 273 MPV 9.6 Immature Gran % Seg Neutrophils % Lymphocytes % Monocytes % Eosinophils % Basophils % Neutrophils # Lymphocytes # Monocytes # Eosinophils # Basophils # Sodium Potassium Chloride Carbon Dioxide BUN Creatinine Est GFR ( Amer) Est GFR (Non-Af Amer) BUN/Creatinine Ratio Glucose Calculated Osmolality Calcium Magnesium Triglycerides Cholesterol LDL Cholesterol, Calc VLDL Cholesterol, Calc HDL Cholesterol Cholesterol/HDL Ratio Lipase
--- NOTE | 2018-02-11 16:11 | Electrocardiograph Report ---
[place] [id number] Test Date: 2018-02-08 Pat Name: Elizabeth Stevens Department: 103 Room: 3B Gender: F Stockbroking Dealer: RM : 1940 Requested By: Nya Queen Order Number: [id number] Reading MD: Alan Atkins Measurements Intervals [place] Rate: 113 P: 43 TN: 124 QRS: 1 QRSD: 74 T: 60 QT: 329 QTc: 396 Interpretive Statements SINUS TACHYCARDIA Electronically Signed On 02-11-2018 16:09:33 EDT by Alan Atkins
[2018-02-11] MEDS ORDERED: Gadolinium Contrast Agent (WT Based) IV PRN (17:41)
--- NOTE | 2018-02-11 19:09 | Internal Med Progress Note ---
Date of Encounter: 02/11/18 Time of Encounter: 19:07 - Assessment and plan (1) Acute and chronic respiratory failure with hypoxia Current Visit: Yes Status: Acute Assessment and plan: Acute on chronic respiratory failure possibly secondary to metastatic disease CTA chest, negative for PE or acute pulmonary process. However CTA did reveal few new indeterminate noncalcified nodules measuring up to 9 mm Findings may represent mixed treatment response with new metastatic disease Patient now on baseline 2 L NC, no respiratory distress lungs CTA/diminished throughout AP and L -Continue Dexamethasone IV, consider switching to oral steroids if patient continues to do well overnight -respiratory support per nasal cannula, -titrate when necessary to maintain SPO2 greater than 92% -Protonix IV for GI prophylaxis -subcutaneous heparin for DVT prophylaxis (2) Impaired ambulation Current Visit: Yes Status: Acute Assessment and plan: BLE strength improving, patient reporting that she does not feel like she is as weakness yesterday We will likely continue to have difficulty with ambulation. Continuing to report intermittent left hip pain; etiology unclear The patient denies any falls or trauma. Should left hip pain continue consider diagnostic imaging as the patient already has metastatic lesions on right femur ; will D/W oncology Out of bed today TID with meals; instructed to increase activity as tolerated with assistance Consult PT/OT for evaluation of functional capacity and further recommendations (3) HTN (hypertension) Current Visit: No Status: Chronic Assessment and plan: Patient with history of hypertension. Had mild hypotension yesterday, BP medications held Hypotension has improved this time Continue holding anti-HTN medications as BP is currently well-controlled continue to closely monitor consider restarting anti-HTN medications as BP continues to improve Qualifiers: Hypertension type: essential hypertension Qualified Code(s): I10 - Essential (primary) hypertension (4) Protein-energy malnutrition Current Visit: No Status: Acute Assessment and plan: History of cancer, reporting decreased appetite over the last couple of months with weight loss Acute pancreatitis identified per CT and elevated lipase on labs, further contributing to protein/calorie malnutrition Reporting nausea improving, regular diet with supplementation as tolerated, consult to nutritional services for further recommendations Qualifiers: Protein-calorie malnutrition severity: unspecified severity Qualified Code( s): E46 - Unspecified protein-calorie malnutrition (5) Small cell lung cancer Current Visit: No Status: Acute Assessment and plan: History of small cell lung cancer. Being treated by Dr. Quintana was [facility] but follows with Dr. Duffy at [facility] oncology as well. Last appointment 01/15/[address] Duffy. Patient to follow up with Dr. Quintana, on February 272017. Last [place]atin/ [place] [address] cycles and palliative chest radiotherapy November,. Continuing to report weight loss and concern for functional decline. New indeterminate nodule suggestive of mixed treatment response or new metastatic disease noted on CT of chest. -Oncology seeing in consultation-patient intent for palliative treatment, patient wishes to establish with [facility] -I have offered to consult palliative care; patient and family declined (6) Generalized weakness Current Visit: Yes Status: Acute Assessment and plan: Generalized weakness continuing to improve However, reporting pain in left hip and left femur Chronic pain and right femur, known sclerotic lesions per CT Per my examination her bilateral lower Extremity is appear much stronger Weakness likely caused by protein/calorie malnutrition with dehydration 2/2 acute pancreatitis, however, I have some concerns about progression of disease Continuing to report a decreased appetite, supplement with Ensure as mentioned previously Additionally she is reporting weight loss, and concern for functional decline -PT/OT-recommend home health physical therapy -Nurse navigator consults-referral made to [facility], -social worker school consult -Patient offered palliative care consult but declined (7) Acute pancreatitis Current Visit: Yes Status: Acute Assessment and plan: Acute pancreatitis with severe dehydration, hypotension and tachycardia on arrival Dehydration resolved with IVF and increased oral intake Patient reporting that nausea has subsided CT scan of the abdomen shows mild stranding adjacent to the pancreatic head D/W patient and family that with DX of pancreatitis patient would benefit from NPO diet The patient and family does not wish for her to remain NPO due to severe calorie and malnutrition secondary to cancer Continue Ensure supplementation and diet as tolerated -Continue antiemetics -Continue pain control measures -With improvement and nausea, encourage oral intake as tolerated Qualifiers: Pancreatitis type: unspecified pancreatitis type Acute pancreatitis complication: unspecified Qualified Code(s): K85.90 - Acute pancreatitis without necrosis or infection, unspecified (8) Tobacco abuse Current Visit: Yes Status: Acute Assessment and plan: Counseled patient on smoking cessation (9) Abnormal finding on CT scan Current Visit: Yes Status: Acute Assessment and plan: CTA CHEST-few indeterminate noncalcified nodules measuring up to 9 mm. Findings may represent mixed treatment response with new metastatic disease. D/W oncology; oncology following in consultation - Time Spent With Patient Total time spent is greater than 50% in coordination of care (as documented) at patient's floor/unit and/or counseling patient: 25 - 35 minutes - Subjective Interval history: Admitted with generalized weakness, shortness of breath or dehydration and nausea. Found to have acute pancreatitis. No acute changes overnight. Patient seen and examined at bedside today, reporting weakness is improving, no longer short of breath and on baseline oxygen. Reports nausea improving, tolerating oral intake. C/o left hip and femur pain which began 2 days ago, not being controlled with current narcotic regimen - Constitutional Vitals: Temp Pulse Resp BP Pulse Ox 99.2 F 89 16 125/80 91 02/11/18 15:22 02/11/18 15:22 02/11/18 15:22 02/11/18 15:22 02/11/18 15:22 General appearance: Present: cachectic, A&O X 3 (Very dehydrated, dry mucosa), pleasant, no acute distress, underweight, loss of weight, answers questions appropriately - Head Head exam: Present: atraumatic, normocephalic - Eye Eye exam: Present: PERRL, conjuntiva pink, sclera anicteric Pupils: Present: PERRL - Neck Neck exam general surgery: Present: supple, trachea midline. Absent: lymphadenopathy - Respiratory Respiratory exam: Present: decreased breath sounds, CTAB, prolonged expiratory phase. Absent: accessory muscle use, rales, respiratory distress, rhonchi, wheezes, tachypnea - Cardiovascular Cardiovascular exam: Present: RRR, +S1, +S2. Absent: diastolic murmur, gallop, rubs, systolic murmur - GI/Abdominal GI/Abdominal exam: Present: normal bowel sounds, soft, no peritoneal signs. Absent: distended, tenderness - Extremities Exam Extremities exam: Present: warm, radial pulses palpable and symmetrical. Absent : calf tenderness, cyanotic, pedal edema - Neurological Exam Neurological exam: Present: CN II-XII intact, oriented X3, no focal deficits. Absent: pronater drift, facial droop, speech deficit - Skin Skin exam: Present: dry, intact Internal Medicine: Result - Labs CBC & Chem 7: 02/11/18 04:58 02/11/18 04:58 Labs: Short CBC 02/11/18 Range/Units 04:58 WBC 5.1 (4.3-11.1) K/mcL Hgb 10.9 L (11.5-15.4) g/dL Hct 34.5 L (35.3-44.9) % Plt Count 257 (140-400) K/mcL Neutrophils # 4.2 (1.6-8.9) K/mcL BMP 02/11/18 04:58 Sodium 135 L Potassium 4.0 Chloride 106 Carbon Dioxide 22 L BUN 15 Creatinine 0.46 L Glucose 109 H Calcium 8.9 - ABG Interpretation ABG results: PT/INR, D-dimer PT 11.2 Seconds (9.4-12.1) 02/08/18 13:40 Consult Discharge Plan - Plan Referrals: David Garza MD [Primary Care Provider] -
[2018-02-11] MEDS ORDERED: Sennosides/Docusate Sodium TABLET PO PRN (19:10)
[2018-02-11] MEDS: Topiramate 25 MG TABLET PO SCH (21:51)
[2018-02-12] MEDS: OXYCODONE Oral CONC 10 MG/0.5 ML ORAL.SYG SL PRN ×5 (01:07→18:02)
[2018-02-12] MEDS: *HR* Heparin 5,000 UNIT/ML VIAL SQ SCH ×2 (05:45→17:58)
[2018-02-12 06:40] LABS: Hematocrit 34.7 % (35.3-44.9); Hemoglobin 11.7 g/dL (11.5-15.4); Mean Corpuscular HGB Conc 33.7 g/dL (31.6-35.5); Mean Corpuscular Hemoglobin 32.4 pg (28.0-33.3); Mean Corpuscular Volume 96.1 fL (83.0-100.0); Mean Platelet Volume 10.4 fL (9.4-12.4); Monocytes # 0.3 K/mcL (0.0-1.3); Nucleated Red Blood Cells 0.4 /100 WBC (0); Platelet Count 243 K/mcL (140-400); Red Blood Count 3.61 M/mcL (3.82-4.97); Red Cell Distribution Width 14.6 % (11.5-14.5)
[2018-02-12 06:56] LABS: BUN/Creatinine Ratio 26 (6-26); Blood Urea Nitrogen 13 mg/dL (8-23); Carbon Dioxide 23 mEq/L (23-29); Chloride 105 mEq/L (98-107); Glucose 100 mg/dL (70-105); Potassium 4.3 mEq/L (3.5-5.1); Sodium 135 mEq/L (136-145); eGFR For African Americans > 60 (> 60); eGFR For Non-African Americans > 60 (> 60)
[2018-02-12 06:57] LABS: Calcium 8.6 mg/dL (8.6-10.3); Osmolality,Calculated 280 (280-300)
[2018-02-12] MEDS: Dexamethasone 4 MG/ML VIAL IVP SCH ×2 (09:15→22:13)
[2018-02-12] MEDS: clonazePAM 0.5 MG TABLET PO PRN ×3 (09:15→18:02)
[2018-02-12 11:28] LABS: Lymphocytes # 0.1 K/mcL (0.6-4.6); Neutrophils # 4.1 K/mcL (1.6-8.9); Platelet Estimate Normal (Normal); Toxic Granulation Present (Not Present)
[2018-02-12] MEDS: 0.9 % Sodium Chloride 1,000 ML IVC SCH (14:34)
--- NOTE | 2018-02-12 16:58 | Oncology Inp Progress Note ---
Date of Encounter: 02/12/18 Time of Encounter: 16:58 (1) Small cell lung cancer Current Visit: Yes Status: Chronic Assessment and plan: Extensive stage small cell lung cancer, treatment intent palliative. s/p 4 cycles carboplatin/etoposide 2016 and palliative chest radiotherapy November 2017- Patient of Dr. Duffy Requesting to establish care with medical oncology at [place]- follow up appointment given with Dr. Sabillon Patient reports recent increase in right hip pain- Right hip MRI wo/w reviewed by Dr. Sabillon/Dr. Duffy which does reveal diffuse osseous metastatic disease throughout the lower lumbar spine, pelvis and proximal femurs. No recommendation for radiotherapy at this time. No pathologic fracture present at this time but she remains at high risk. Consider therapy with bone modifying agent such as Xgeva on outpatient basis to help prevent SRE's. Treatment intent palliative. Due to poor performance status palliative chemotherapy has not been pursued. She may be a good candidate for palliative immunotherapy-to be discussed further on an outpatient basis Patient given information for follow up appointment next week with Dr. Sabillon. At this time, oncology will sign off. Please feel free to contact for any other questions or concerns. Oncology: Subj Interval history: Ms. Stevens is resting in bed. She denies pain. States her anxiety is under better control since increasing the dosing interval of her xanax. She reports minimal nausea with eating, medications are effective, denies vomiting. - Constitutional Vitals: Vital Signs Temp Pulse Resp BP Pulse Ox 02/12/18 15:08 98 F 97 16 107/71 94 02/12/18 11:28 97.6 F 83 16 134/86 95 02/12/18 07:11 98.2 F 80 16 128/87 96 02/12/18 05:39 132/75 02/12/18 02:42 98.2 F 83 16 130/83 94 02/11/18 22:58 98.1 F 87 16 132/82 91 02/11/18 19:42 98.6 F 88 16 139/83 95 Intake and Output 02/12/18 02/12/18 02/12/18 07:59 15:59 23:59 Intake Total 1480 / 1480 Output Total 1100 / 1100 Balance -1100 / -1100 1480 / 1480 Intake: IV Fluids 1000 / 1000 0.9 % Sodium Chloride 1,000 ML 1000 / 1000 @ 60 mls/hr IVC .[id number] [facility] Rx #:[id number] Oral 480 / 480 Output: Catheter 1100 / 1100 Other: Meal Lunch Percent of Meal Consumed 50% Weight 53.5 kg Patient Weight 02/12/18 23:59 Weight 53.5 kg General appearance: cooperative, no acute distress, no febrile - Head Head exam: Present: atraumatic - ENT ENT exam: Present: mucous membranes moist - Respiratory Respiratory exam: Present: CTAB. Absent: respiratory distress - Cardiovascular Cardiovascular exam: Present: RRR, +S1, +S2 - GI/Abdominal GI/Abdominal exam: Present: normal bowel sounds, soft. Absent: guarding, rebound, tenderness - Extremities Exam Extremities exam: Present: normal inspection. Absent: calf tenderness - Neurological Exam Neurological exam: Present: alert, oriented X3, no focal deficits, strengths equal and symetr throughout - Psychiatric Psychiatric exam: Present: normal affect, normal mood - Skin Skin exam: Present: dry, intact, normal color, warm Oncology: Obj Data - Labs CBC & Chem 7: 02/14/18 01:02 02/14/18 01:02 Labs: Laboratory Results - last 24 hr 02/12/18 02/12/18 05:07 05:07 WBC 4.5 RBC 3.61 L Hgb 11.7 Hct 34.7 L MCV 96.1 MCH 32.4 MCHC 33.7 RDW 14.6 H Plt Count 243 MPV 10.4 Seg Neutrophils % 88.0 Band Neutrophils % 4.0 Lymphocytes % 2.0 Monocytes % 6.0 Neutrophils # 4.1 Lymphocytes # 0.1 L Monocytes # 0.3 Nucleated RBCs/100 WBC 0.4 H Toxic Granulation Present A Platelet Estimate Normal Sodium 135 L Potassium 4.3 Chloride 105 Carbon Dioxide 23 BUN 13 Creatinine 0.50 L Est GFR ( Amer) > 60 Est GFR (Non-Af Amer) > 60 BUN/Creatinine Ratio 26 Glucose 100 Calculated Osmolality 280 Calcium 8.6 - Impressions Impressions Hip MRI 02/12/18 17:41 IMPRESSION: 1. Diffuse osseous metastatic disease throughout the lower lumbar spine, pelvis and proximal femurs. No superimposed pathologic fracture is present, although the innumerable lesions increase the patient's risk for pathologic fracture. 2. Mild right hip degenerative changes. D/ / 02/12/2018 09:09:52 Zeferino King MD / saul Interpreting Provider: Zeferino King MD - ABG Interpretation ABG results: PT/INR, D-dimer PT 11.2 Seconds (9.4-12.1) 02/08/18 13:40 Consult Discharge Plan - Plan Additional Instructions: Follow up with your primary care provider and oncology as scheduled. Return to your normal medications, diet, and activities as tolerated. Return to the emergency department as needed for any other problems or concerns , or if your symptoms return or worsen. Referrals: David Garza MD [Primary Care Provider] - 02/19/18 1:30 pm Prescriptions: Nicotine Patch [Nicoderm] 14 mg TD DAILY PRN #30 patch.td24 PRN Reason: Nicotine Cravings
--- NOTE | 2018-02-12 18:18 | Internal Med Progress Note ---
Date of Encounter: 02/12/18 Time of Encounter: 09:05 - Assessment and plan (1) HTN (hypertension) Current Visit: Yes Status: Chronic Assessment and plan: Chronic. Vital stable today. Continue home medications. Continue to monitor vitals per admission orders. Qualifiers: Hypertension type: essential hypertension Qualified Code(s): I10 - Essential (primary) hypertension (2) Protein-energy malnutrition Current Visit: Yes Status: Acute Assessment and plan: Patient reports decreased appetite over the last few months with weight loss, she does have a history of cancer. Abdominal CT notes acute pancreatitis, could further contribute to protein/ calorie malnutrition. Patient was up eating breakfast at bedside this morning, she denies any nausea. [employer] consult. I appreciate their recommendation consultation. Qualifiers: Protein-calorie malnutrition severity: unspecified severity Qualified Code( s): E46 - Unspecified protein-calorie malnutrition (3) Small cell lung cancer Current Visit: Yes Status: Acute Assessment and plan: Patient with history of small cell lung cancer. Patient sees oncology in [place], as well as [facility]. Patient was last seen by [facility] oncology approximately one month ago. Patient has follow-up appointment with [place] oncology 02/27/18. Oncology is following here as well. Patient has new nodule noted on CT chest suggestive of mixed treatments response versus new metastatic disease. Oncology has been consulted. Patient would like to establish with [facility] oncology. Patient has declined palliative care at this time. (4) Generalized weakness Current Visit: Yes Status: Acute Assessment and plan: Generalized weakness. Patient reporting pain in left hip and left femur. Patient with known sclerotic lesions to right femur. Weakness likely caused by malnutrition, dehydration, poor functional status, metastatic disease. MRI right hip with and without contrast shows diffuse osseous metastatic disease throughout the lower lumbar spine, pelvis, and proximal femurs. There is no superimposed pathologic fracture though the lesions increased patient's risk for pathologic fracture. Physical therapy has recommended home health with visits 3 times a week and continue home health PT. Patient will go home with [facility] PT and home health. (5) Impaired ambulation Current Visit: Yes Status: Acute Assessment and plan: Plan as above. (6) Acute and chronic respiratory failure with hypoxia Current Visit: Yes Status: Acute Assessment and plan: Acute on chronic respiratory failure, likely secondary to metastatic disease. CTA chest negative for PE, noted new noncalcified nodules measuring up to 9mm. Pt on baseline 2L via n/c, no respiratory distress, lungs clear and diminished. Continue IV steoirds, 02 prn (7) Acute pancreatitis Current Visit: Yes Status: Acute Assessment and plan: CT scan abdomen shows mild stranding adjacent pancreatic head. Patient presented with nausea, dehydration, hypotension, tachycardia. Per family, patient has history of diagnosis of pancreatitis. Patient was not made nothing by mouth due to severe calorie malnutrition. She was able to tolerate her breakfast tray this morning. Nutrition has been consulted. Continue antiemetics, pain control, supplements. Acute pancreatitis with severe dehydration, hypotension and tachycardia on arrival Dehydration resolved with IVF and increased oral intake Patient reporting that nausea has subsided CT scan of the abdomen shows mild stranding adjacent to the pancreatic head D/W patient and family that with DX of pancreatitis patient would benefit from NPO diet The patient and family does not wish for her to remain NPO due to severe calorie and malnutrition secondary to cancer Continue Ensure supplementation and diet as tolerated -Continue antiemetics -Continue pain control measures -With improvement and nausea, encourage oral intake as tolerated Qualifiers: Pancreatitis type: unspecified pancreatitis type Acute pancreatitis complication: unspecified Qualified Code(s): K85.90 - Acute pancreatitis without necrosis or infection, unspecified (8) Tobacco abuse Current Visit: Yes Status: Acute Assessment and plan: Chronic. NicoDerm patches ordered when necessary. (9) Abnormal finding on CT scan Current Visit: Yes Status: Acute Assessment and plan: CT chest abnormal. Oncology is following. Plan as above. Chest CTA 02/08/18 13:40 IMPRESSION: No evidence of pulmonary embolism. There is persistent partial collapse of the medial right upper lobe with soft tissue density in the right suprahilar region. Findings improved compared to prior studies, consistent with known malignancy. There are a few new indeterminate noncalcified nodules measuring up to 9 mm. Findings may represent mixed treatment response with new metastatic disease. D/ / Jessica Winston MD / Jessica Winston MD Interpreting Provider: Jessica Winston MD / 02/12/2018 09:09:52 Zeferino King MD / earnold Interpreting Provider: Zeferino King MD - Time Spent With Patient Total time spent is greater than 50% in coordination of care (as documented) at patient's floor/unit and/or counseling patient: less than 15 minutes - Subjective Interval history: Patient seen and assessed at 9:05 AM. Patient was alert, awake, appeared to be mildly distracted during her encounter. Patient reports that she would like to have home health after discharge, PT/OT recommended at home. She denies any abdominal pain, she denies any shortness of breath, new cough, chest pain. She states that she is feeling somewhat better, we will reassess in the morning. - Constitutional Vitals: Temp Pulse Resp BP Pulse Ox 98 F 97 16 107/71 94 02/12/18 15:08 02/12/18 15:08 02/12/18 15:08 02/12/18 15:08 02/12/18 15:08 General appearance: Present: cachectic, A&O X 3 (Very dehydrated, dry mucosa), pleasant, no acute distress, underweight, loss of weight, answers questions appropriately - Head Head exam: Present: atraumatic, normal inspection, normocephalic - Eye Eye exam: Present: normal appearance, conjuntiva pink, sclera anicteric - Neck Neck exam general surgery: Present: normal inspection, supple, trachea midline. Absent: lymphadenopathy, tenderness - Respiratory Respiratory exam: Present: CTAB. Absent: accessory muscle use, rales, rhonchi, wheezes - Cardiovascular Cardiovascular exam: Present: RRR, +S1, +S2. Absent: diastolic murmur, gallop, rubs, systolic murmur - GI/Abdominal GI/Abdominal exam: Present: normal bowel sounds, soft. Absent: distended, hepatomegaly, tenderness - Extremities Exam Extremities exam: Present: normal capillary refill, normal inspection, warm, radial pulses palpable and symmetrical. Absent: calf tenderness, cyanotic, pedal edema, tenderness - Neurological Exam Neurological exam: Present: alert, oriented X3, no focal deficits. Absent: facial droop, speech deficit - Skin Skin exam: Present: dry, intact, normal color, warm. Absent: rash Internal Medicine: Result - Labs CBC & Chem 7: 02/12/18 05:07 02/12/18 05:07 Labs: Short CBC 02/12/18 Range/Units 05:07 WBC 4.5 (4.3-11.1) K/mcL Hgb 11.7 (11.5-15.4) g/dL Hct 34.7 L (35.3-44.9) % Plt Count 243 (140-400) K/mcL Neutrophils # 4.1 (1.6-8.9) K/mcL BMP 02/12/18 05:07 Sodium 135 L Potassium 4.3 Chloride 105 Carbon Dioxide 23 BUN 13 Creatinine 0.50 L Glucose 100 Calcium 8.6 - ABG Interpretation ABG results: PT/INR, D-dimer PT 11.2 Seconds (9.4-12.1) 02/08/18 13:40 - Impressions Impressions Hip MRI 02/12/18 17:41 IMPRESSION: 1. Diffuse osseous metastatic disease throughout the lower lumbar spine, pelvis and proximal femurs. No superimposed pathologic fracture is present, although the innumerable lesions increase the patient's risk for pathologic fracture. 2. Mild right hip degenerative changes. D/ / 02/12/2018 09:09:52 Zeferino King MD / [facility] Interpreting Provider: Zeferino King MD Consult Discharge Plan - Plan Referrals: David Garza MD [Primary Care Provider] - 02/19/18 1:30 pm
[2018-02-12] MEDS ORDERED: Nicotine 14 MG PATCH.TD24 TD PRN (18:34)
[2018-02-12] MEDS: Topiramate 25 MG TABLET PO SCH (22:13)
[2018-02-13] MEDS: *HR* Heparin 5,000 UNIT/ML VIAL SQ SCH ×2 (05:58→18:20)
[2018-02-13] MEDS: 0.9 % Sodium Chloride 1,000 ML IVC SCH (06:54)
[2018-02-13 07:51] LABS: Basophils % 0.8 %; Hematocrit 34.1 % (35.3-44.9); Immature Granulocytes % 8.5 % (0-4); Lymphocytes # 0.4 K/mcL (0.6-4.6); Lymphocytes % 8.9 %; Mean Corpuscular HGB Conc 32.3 g/dL (31.6-35.5); Mean Corpuscular Hemoglobin 31.2 pg (28.0-33.3); Mean Corpuscular Volume 96.6 fL (83.0-100.0); Mean Platelet Volume 9.8 fL (9.4-12.4); Monocytes # 0.3 K/mcL (0.0-1.3); Monocytes % 5.5 %; Platelet Count 246 K/mcL (140-400); Red Blood Count 3.53 M/mcL (3.82-4.97); Red Cell Distribution Width 14.7 % (11.5-14.5); Segmented Neutrophils % 76.3 %
[2018-02-13 07:52] LABS: BUN/Creatinine Ratio 31 (6-26); Blood Urea Nitrogen 15 mg/dL (8-23); Calcium 8.5 mg/dL (8.6-10.3); Carbon Dioxide 24 mEq/L (23-29); Chloride 104 mEq/L (98-107); Glucose 96 mg/dL (70-105); Osmolality,Calculated 285 (280-300); Sodium 137 mEq/L (136-145); eGFR For African Americans > 60 (> 60); eGFR For Non-African Americans > 60 (> 60)
[2018-02-13] MEDS: OXYCODONE Oral CONC 10 MG/0.5 ML ORAL.SYG SL PRN ×3 (07:58→18:20)
[2018-02-13 08:13] LABS: Neutrophils # 3.7 K/mcL (1.6-8.9)
[2018-02-13 08:40] LABS: Platelet Estimate Normal (Normal)
[2018-02-13] MEDS: Dexamethasone 4 MG/ML VIAL IVP SCH ×2 (09:13→20:47)
[2018-02-13] MEDS: clonazePAM 0.5 MG TABLET PO PRN ×3 (09:17→20:47)
[2018-02-13] MEDS: Ondansetron ODT 4 MG TAB.RAPDIS SL PRN (11:09)
--- NOTE | 2018-02-13 19:40 | Discharge Summary ---
- NOTES TO OUTPATIENT PROVIDER Notes to Outpatient Provider: Pt was admitted for severe generalized weakness 2 days prior to arrival, accompanied by shortness of breath and epigastric tenderness, hypoxia and dry cough. She reported constant nausea and decreased appetite for several days. Patient with elevated lipase on admission, trended down his visit continued she continued to nausea was relieved with po antiemetics. Patient also reported hip pain, MRI of right hip revealed diffuse osseous metastatic disease throughout lower lumbar spine, pelvis, and proximal femurs and pelvis pathologic fracture was noted, also mild right hip degenerative changes. Patient is declining palliative care at this time and has requested to start following with oncology here at [facility] instead of driving to and from [place] for appointments. Orders not resulted at time of discharge: Pending orders 02/14/18 04:00 Basic Metabolic Panel AM 0400 Complete Blood Count [HEME] AM 0400 Date of Encounter: 02/13/18 Time of Encounter: 11:00 - Discharge Diagnosis (1) HTN (hypertension) Priority: Secondary Status: Chronic Assessment and Plan: Chronic. Stable. Continue home medications. Qualifiers: Hypertension type: essential hypertension Qualified Code(s): I10 - Essential (primary) hypertension (2) Protein-energy malnutrition Priority: Secondary Status: Acute Assessment and Plan: Patient reports decreased appetite over the last few months with weight loss, she does have a history of cancer. Abdominal CT notes acute pancreatitis, could further contribute to protein/ calorie malnutrition. Patient reports nausea today and states that she would like to go home tomorrow. Antiemetics prn [employer] consult. I appreciate their recommendation consultation. Qualifiers: Protein-calorie malnutrition severity: unspecified severity Qualified Code( s): E46 - Unspecified protein-calorie malnutrition (3) Small cell lung cancer Priority: Secondary Status: Chronic Assessment and Plan: Patient with history of small cell lung cancer. Patient has new nodule noted on CT chest suggestive of mixed treatments response versus new metastatic disease. Oncology has been consulted. I appreciate their recommendations. Pt has declined palliative care. (4) Generalized weakness Priority: Secondary Status: Acute Assessment and Plan: Continue PT/OT after discharge. (5) Impaired ambulation Priority: Secondary Status: Acute Assessment and Plan: Plan as above. (6) Acute and chronic respiratory failure with hypoxia Priority: Secondary Status: Acute Assessment and Plan: Acute on chronic respiratory failure, likely secondary to metastatic disease. Pt on baseline 2L via n/c, no respiratory distress, lungs clear and diminished. Continue IV steoirds, 02 prn (7) Acute pancreatitis Priority: Secondary Status: Acute Assessment and Plan: Continue antiemetics, pain control, supplements. Acute pancreatitis with severe dehydration, hypotension and tachycardia on arrival Dehydration resolved with IVF and increased oral intake Patient reporting that nausea has subsided CT scan of the abdomen shows mild stranding adjacent to the pancreatic head D/W patient and family that with DX of pancreatitis patient would benefit from NPO diet The patient and family does not wish for her to remain NPO due to severe calorie and malnutrition secondary to cancer Continue Ensure supplementation and diet as tolerated -Continue antiemetics -Continue pain control measures -With improvement and nausea, encourage oral intake as tolerated Qualifiers: Pancreatitis type: unspecified pancreatitis type Acute pancreatitis complication: unspecified Qualified Code(s): K85.90 - Acute pancreatitis without necrosis or infection, unspecified (8) Tobacco abuse Priority: Secondary Status: Acute Assessment and Plan: Chronic. NicoDerm patches prn (9) Abnormal finding on CT scan Priority: Secondary Status: Acute Assessment and Plan: CT chest abnormal. Oncology is following. Chest CTA 02/08/18 13:40 IMPRESSION: No evidence of pulmonary embolism. There is persistent partial collapse of the medial right upper lobe with soft tissue density in the right suprahilar region. Findings improved compared to prior studies, consistent with known malignancy. There are a few new indeterminate noncalcified nodules measuring up to 9 mm. Findings may represent mixed treatment response with new metastatic disease. D/ / Jessica Winston MD / Jessica Winston MD Interpreting Provider: Jessica Winston MD / 02/12/2018 09:09:52 Zeferino King MD / [facility] Interpreting Provider: Zeferino King MD Hospital course: Ms. Stevens is a 77 year old female - Time Spent with Patient Total time spent providing and/or coordinating discharge services: - Discharge Medications Prescriptions: Nicotine Patch [Nicoderm] 14 mg TD DAILY PRN #30 patch.td24 PRN Reason: Nicotine Cravings Home Medications: Alendronate Sodium [Fosamax] 70 mg PO HAN 07/26/16 [History] Enalapril Maleate [Vasotec] 10 mg PO BID PRN 07/26/16 [History] Ergocalciferol (VITAMIN D2) [Vitamin D2] 50,000 unit PO WE 07/26/16 [History] Metoprolol Succinate 100 mg PO DAILY PRN 07/26/16 [History] Omeprazole [PriLOSEC] 20 mg PO DAILY 07/26/16 [History] Potassium Chloride [K-Tab ER] 20 meq PO DAILY 07/26/16 [History] Pravastatin Sodium [Pravachol] 20 mg PO HS 07/26/16 [History] Topiramate [Topamax] 25 mg PO HS 07/26/16 [History] clonazePAM [Klonopin] 0.5 mg PO BID PRN 07/26/16 [History] Docusate [Colace] 100 mg PO BID PRN #60 capsule 01/15/18 [Rx] OxyCODONE Immed Rel [Roxicodone 10 MG] 10 mg PO Q3-4H PRN 20 Days #120 tab 01/15 [Rx] Ciprofloxacin [Cipro] 250 mg PO BID #20 tablet 01/19/18 [Rx] Ondansetron [Zofran] 8 mg PO Q8HR PRN 30 Days #90 tablet 01/29/18 [Rx] Melatonin 3 mg PO HS PRN tablet 02/13/18 [Rx] Nicotine Patch [Nicoderm] 14 mg TD DAILY PRN #30 patch.td24 02/13/18 [Rx] Sennosides/Docusate Sodium [Senna Plus] 2 each PO BID PRN tablet 02/13/18 [Rx] Allergies/Adverse Reactions: 3 Allergy/AdvReac Type Severity Reaction Status Date / Time No Known Allergies Allergy Unverified 12/11/17 11:26 Date of admission: 02/08/18 22:53 Primary care physician: David Garza MD Consults: 02/09/18 12:09 Consult to Nurse Navigator [CONS] Routine Comment: History of small cell carcinoma, advanced stage Consult to Physical Therapy [CONS] Routine Comment: Evaluate, develop and implement POC Reason for Consult: Ambulatory dysfunction, generalized bilateral lower extremity weakness Does patient have active BEDREST order?: No Is patient medically & hemodynamically stable?: Yes Patient assessed for mobility or mobilized this visit?: No Consult to Liquor Merchant [CONS] Routine Reason for SW Consult: History of advanced stage carcinoma, could use additional resources. Progressive weakness 02/09/18 12:20 Consult to Nutrition [CONS] Routine Comment: Consulting Provider: NUTRITION Reason for Dietary Consult: PO Supplementation 02/09/18 12:21 Consult to Oncology [CONS] Routine Consulting Provider: On[facility] Reason for Consult: changes due to ct of pelvis and metastatic disease Call Completed: No Discharging clinician: Danica Richmond Anticipated date of discharge: 02/13/18 - Constitutional Vitals: Temp Pulse Resp BP Pulse Ox 99.5 F 84 16 128/85 95 02/13/18 15:38 02/13/18 15:38 02/13/18 15:38 02/13/18 15:38 02/13/18 15:38 General appearance: Present: cachectic, A&O X 3 (Very dehydrated, dry mucosa), pleasant, no acute distress, underweight, loss of weight, answers questions appropriately - Head Head exam: Present: atraumatic, normal inspection, normocephalic - Eye Eye exam: Present: normal appearance, conjuntiva pink, sclera anicteric - Neck Neck exam general surgery: Present: supple, trachea midline. Absent: lymphadenopathy, tenderness - Respiratory Respiratory exam: Present: decreased breath sounds, CTAB. Absent: accessory muscle use, chest wall tenderness, rales, respiratory distress, rhonchi, wheezes - Cardiovascular Cardiovascular exam: Present: RRR, +S1, +S2. Absent: diastolic murmur, gallop, rubs, systolic murmur - GI/Abdominal GI/Abdominal exam: Present: normal bowel sounds, soft. Absent: distended, hepatomegaly, tenderness - Extremities Exam Extremities exam: Present: normal capillary refill, normal inspection, warm, radial pulses palpable and symmetrical. Absent: calf tenderness, cyanotic, pedal edema, tenderness - Neurological Exam Neurological exam: Present: alert, oriented X3, no focal deficits. Absent: facial droop, speech deficit - Skin Skin exam: Present: dry, intact, normal color, warm. Absent: rash - Patient Status Disposition: Home Health Service Condition: Fair Functional capacity at discharge: uses cane/walker Overall status at discharge: patient is not back to baseline - Discharge Instructions Follow Up With: David Garza MD [Primary Care Provider] - 02/19/18 1:30 pm Additional Instructions: Follow up with your primary care provider and oncology as scheduled. Return to your normal medications, diet, and activities as tolerated. Return to the emergency department as needed for any other problems or concerns , or if your symptoms return or worsen. - Diet and Activity Activity: increase activity as tolerated Diet: advance to your usual diet
[2018-02-13] MEDS: Topiramate 25 MG TABLET PO SCH (20:46)
[2018-02-13] MEDS: Melatonin 3 MG TABLET PO PRN (20:46)
[2018-02-14] MEDS: 0.9 % Sodium Chloride 1,000 ML IVC SCH ×2 (00:02→18:23)
[2018-02-14 01:18] LABS: Basophils # 0.1 K/mcL (0.0-0.2); Basophils % 0.7 %; Hematocrit 31.9 % (35.3-44.9); Hemoglobin 10.5 g/dL (11.5-15.4); Immature Granulocytes % 7.8 % (0-4); Lymphocytes # 0.5 K/mcL (0.6-4.6); Lymphocytes % 7.1 %; Mean Corpuscular HGB Conc 32.9 g/dL (31.6-35.5); Mean Corpuscular Hemoglobin 31.5 pg (28.0-33.3); Mean Corpuscular Volume 95.8 fL (83.0-100.0); Mean Platelet Volume 9.5 fL (9.4-12.4); Monocytes # 0.4 K/mcL (0.0-1.3); Nucleated Red Blood Cells 0.3 /100 WBC (0); Platelet Count 216 K/mcL (140-400); Red Blood Count 3.33 M/mcL (3.82-4.97); Red Cell Distribution Width 14.5 % (11.5-14.5); Segmented Neutrophils % 79.4 %
[2018-02-14 01:35] LABS: BUN/Creatinine Ratio 35 (6-26); Blood Urea Nitrogen 17 mg/dL (8-23); Calcium 8.2 mg/dL (8.6-10.3); Carbon Dioxide 23 mEq/L (23-29); Chloride 106 mEq/L (98-107); Glucose 118 mg/dL (70-105); Osmolality,Calculated 289 (280-300); Sodium 138 mEq/L (136-145); eGFR For African Americans > 60 (> 60); eGFR For Non-African Americans > 60 (> 60)
[2018-02-14 01:39] LABS: Platelet Estimate Normal (Normal); Reactive Lymphocytes Present (Not Present); Toxic Granulation Present (Not Present)
[2018-02-14] MEDS: Ondansetron ODT 4 MG TAB.RAPDIS SL PRN ×3 (06:02→18:23)
[2018-02-14] MEDS: OXYCODONE Oral CONC 10 MG/0.5 ML ORAL.SYG SL PRN ×4 (06:02→22:34)
[2018-02-14] MEDS: *HR* Heparin 5,000 UNIT/ML VIAL SQ SCH ×2 (06:03→18:23)
[2018-02-14] MEDS ORDERED: Metoprolol XL (24 HR) Succ 50 MG TAB.ER.24H PO PRN ×2 (07:28→15:26)
[2018-02-14] MEDS ORDERED: Lisinopril 20 MG TABLET PO PRN (07:28)
[2018-02-14] MEDS: Dexamethasone 4 MG/ML VIAL IVP SCH ×2 (09:01→20:13)
[2018-02-14 15:37] LABS: Bilirubin,Urine Negative (Negative); Blood,Urine Negative (Negative); Clarity,Urine Cloudy (Clear); Color,Urine Yellow (Yellow); Glucose,Urine (UA) Normal (Normal); Ketones,Urine Negative (Negative); Leukocyte Esterase,Urine Moderate (Negative); Nitrite,Urine Positive (Negative); PH,Urine 6.5 pH Units (5.0-8.0); Protein,Urine Negative (Neg-Trace); Specific Gravity,Urine 1.019 (1.010-1.025); Urobilinogen,Urine Normal (Normal)
[2018-02-14 15:39] LABS: Bacteria,Urine Many per hpf (None-Few); Hyaline Casts,Urine None Seen per lpf (None-Few); RBC,Urine 0-3 per hpf (0-3); Squamous Epithelial Cell,Urine None Seen per lpf (None-Few); WBC,Urine 30-50 per hpf (0-3)
--- NOTE | 2018-02-14 17:12 | Internal Med Progress Note ---
Date of Encounter: 02/14/18 Time of Encounter: 11:05 - Assessment and plan (1) HTN (hypertension) Current Visit: Yes Status: Chronic Assessment and plan: Chronic. Stable. Continue home medications. Monitor vitals per admission order. Qualifiers: Hypertension type: essential hypertension Qualified Code(s): I10 - Essential (primary) hypertension (2) Protein-energy malnutrition Current Visit: Yes Status: Acute Assessment and plan: Patient reports decreased appetite over the last few months with weight loss, she does have a history of cancer. 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 I appreciate their recommendation consultation. Qualifiers: Protein-calorie malnutrition severity: unspecified severity Qualified Code( s): E46 - Unspecified protein-calorie malnutrition (3) Small cell lung cancer Current Visit: Yes Status: Chronic Assessment and plan: Patient with history of small cell lung cancer. Stable Oncology has been consulted. I appreciate their recommendations. Pt has declined palliative care. Will follow outpatient after discharge. (4) Generalized weakness Current Visit: Yes Status: Acute Assessment and plan: Continue PT/OT after discharge. Home health. (5) Impaired ambulation Current Visit: Yes Status: Chronic Assessment and plan: Plan as above. (6) Acute and chronic respiratory failure with hypoxia Current Visit: Yes Status: Acute Assessment and plan: Acute on chronic respiratory failure, likely secondary to metastatic disease. Pt is at her normal baseline 2L via n/c, no respiratory distress, lungs clear and diminished. 02 prn (7) Acute pancreatitis Current Visit: Yes Status: Acute Assessment and plan: Continue antiemetics, pain control, supplements. Qualifiers: Pancreatitis type: unspecified pancreatitis type Acute pancreatitis complication: unspecified Qualified Code(s): K85.90 - Acute pancreatitis without necrosis or infection, unspecified (8) Tobacco abuse Current Visit: Yes Status: Acute Assessment and plan: Chronic. NicoDerm patches prn (9) Abnormal finding on CT scan Current Visit: Yes Status: Acute Assessment and plan: CT chest abnormal. Oncology is following. Follow [facility] after discharge Chest CTA 02/08/18 13:40 IMPRESSION: No evidence of pulmonary embolism. There is persistent partial collapse of the medial right upper lobe with soft tissue density in the right suprahilar region. Findings improved compared to prior studies, consistent with known malignancy. There are a few new indeterminate noncalcified nodules measuring up to 9 mm. Findings may represent mixed treatment response with new metastatic disease. D/ / Jessica Winston MD / Jessica Winston MD Interpreting Provider: Jessica Winston MD / 02/12/2018 09:09:52 Zeferino King MD / earnold Interpreting Provider: Zeferino King MD - Time Spent With Patient Total time spent is greater than 50% in coordination of care (as documented) at patient's floor/unit and/or counseling patient: less than 15 minutes - Subjective Interval history: Patient seen and assessed at 11:05 AM. Patient was alert, awake, pleasant. She denies any shortness of breath, new cough, chest pain. She states that she is feeling somewhat better, we will reassess in the morning. Today, patient reports that she has abdominal pain is suprapubic area. Tender to palpation. She reports that she has not had a bowel movement in several days. - Constitutional Vitals: Temp Pulse Resp BP Pulse Ox 98.5 F 87 14 132/80 92 02/14/18 15:06 02/14/18 15:06 02/14/18 15:06 02/14/18 15:06 02/14/18 15:06 General appearance: Present: cachectic, cooperative, A&O X 3 (Very dehydrated, dry mucosa), pleasant, no acute distress, underweight, loss of weight, answers questions appropriately - Head Head exam: Present: atraumatic, normal inspection, normocephalic - Eye Eye exam: Present: conjuntiva pink, sclera anicteric - Neck Neck exam general surgery: Present: normal inspection, supple, trachea midline. Absent: lymphadenopathy, tenderness - Respiratory Respiratory exam: Present: CTAB. Absent: accessory muscle use, rales, rhonchi, wheezes - Cardiovascular Cardiovascular exam: Present: RRR, +S1, +S2. Absent: diastolic murmur, gallop, rubs, systolic murmur - GI/Abdominal GI/Abdominal exam: Present: normal bowel sounds, soft, tenderness. Absent: distended, hepatomegaly - Extremities Exam Extremities exam: Present: normal capillary refill, normal inspection, warm, radial pulses palpable and symmetrical. Absent: calf tenderness, cyanotic, pedal edema, tenderness - Neurological Exam Neurological exam: Present: alert, CN II-XII intact, oriented X3, no focal deficits. Absent: altered, facial droop, speech deficit - Skin Skin exam: Present: dry, intact, normal color, warm. Absent: rash Internal Medicine: Result - Labs CBC & Chem 7: 02/14/18 01:02 02/14/18 01:02 Labs: Short CBC 02/14/18 Range/Units 01:02 WBC 7.6 D (4.3-11.1) K/mcL Hgb 10.5 L (11.5-15.4) g/dL Hct 31.9 L (35.3-44.9) % Plt Count 216 (140-400) K/mcL Neutrophils # 6.0 (1.6-8.9) K/mcL BMP 02/14/18 01:02 Sodium 138 Potassium 4.0 Chloride 106 Carbon Dioxide 23 BUN 17 Creatinine 0.49 L Glucose 118 H Calcium 8.2 L Urine 02/14/18 Range/Units 15:25 Urine Color Yellow (Yellow) Urine Clarity Cloudy A (Clear) Urine pH 6.5 (5.0-8.0) pH Units Ur Specific [place] 1.019 (1.010-1.025) Urine Protein Negative (Neg-Trace) mg/dL Urine Glucose (UA) Normal (Normal) mg/dL - ABG Interpretation ABG results: PT/INR, D-dimer PT 11.2 Seconds (9.4-12.1) 02/08/18 13:40 Consult Discharge Plan - Plan Additional Instructions: Follow up with your primary care provider and oncology as scheduled. Return to your normal medications, diet, and activities as tolerated. Return to the emergency department as needed for any other problems or concerns , or if your symptoms return or worsen. Referrals: David Garza MD [Primary Care Provider] - 02/19/18 1:30 pm Prescriptions: Ondansetron ODT [Zofran ODT] 4 mg SL Q4HR PRN #12 tab.rapdis PRN Reason: Nausea Nicotine Patch [Nicoderm] 14 mg TD DAILY PRN #30 patch.td24 PRN Reason: Nicotine Cravings
[2018-02-14] MEDS: cefTRIAXone 1,000 MG in Water for inj. (sterile) 20 ML 10 ML IVP SCH (18:22)
[2018-02-14] MEDS: Topiramate 25 MG TABLET PO SCH (20:13)
[2018-02-15] MEDS: OXYCODONE Oral CONC 10 MG/0.5 ML ORAL.SYG SL PRN ×2 (03:32→12:18)
[2018-02-15] MEDS: *HR* Heparin 5,000 UNIT/ML VIAL SQ SCH (06:00)
[2018-02-15 06:10] LABS: Hematocrit 35.7 % (35.3-44.9); Hemoglobin 11.7 g/dL (11.5-15.4); Mean Corpuscular HGB Conc 32.8 g/dL (31.6-35.5); Mean Corpuscular Hemoglobin 31.5 pg (28.0-33.3); Mean Platelet Volume 10.5 fL (9.4-12.4); Nucleated Red Blood Cells 0.3 /100 WBC (0); Platelet Count 233 K/mcL (140-400); Red Blood Count 3.72 M/mcL (3.82-4.97); Red Cell Distribution Width 14.4 % (11.5-14.5)
[2018-02-15 06:23] LABS: BUN/Creatinine Ratio 37 (6-26); Blood Urea Nitrogen 15 mg/dL (8-23); Calcium 8.4 mg/dL (8.6-10.3); Carbon Dioxide 26 mEq/L (23-29); Chloride 100 mEq/L (98-107); Glucose 88 mg/dL (70-105); Osmolality,Calculated 274 (280-300); Potassium 4.3 mEq/L (3.5-5.1); Sodium 132 mEq/L (136-145); eGFR For African Americans > 60 (> 60); eGFR For Non-African Americans > 60 (> 60)
[2018-02-15 06:57] LABS: Platelet Estimate Normal (Normal)
[2018-02-15 07:27] LABS: Lymphocytes # 0.3 K/mcL (0.6-4.6)
[2018-02-15 07:28] LABS: Monocytes # 0.7 K/mcL (0.0-1.3); Neutrophils # 8.6 K/mcL (1.6-8.9)
[2018-02-15] MEDS ORDERED: Acetaminophen 325 MG TABLET PO ONE (10:06)
[2018-02-15] MEDS: cefTRIAXone 1,000 MG in Water for inj. (sterile) 20 ML 10 ML IVP SCH (10:11)
[2018-02-15] MEDS: Dexamethasone 4 MG/ML VIAL IVP SCH (10:12)
[2018-02-15] MEDS: Ondansetron ODT 4 MG TAB.RAPDIS SL PRN (10:12)
[2018-02-15 10:37] VITALS: BP 150/90
--- NOTE | 2018-02-15 13:52 | Internal Med Progress Note ---
Date of Encounter: 02/15/18 Time of Encounter: 10:05 - Assessment and plan (1) HTN (hypertension) Current Visit: Yes Status: Chronic Assessment and plan: Chronic. Vitals are stable. Continue home medications. Qualifiers: Hypertension type: essential hypertension Qualified Code(s): I10 - Essential (primary) hypertension (2) Protein-energy malnutrition Current Visit: Yes Status: Acute Assessment and plan: Continue Ensure shakes at home. Continue antiemetics prn Qualifiers: Protein-calorie malnutrition severity: unspecified severity Qualified Code( s): E46 - Unspecified protein-calorie malnutrition (3) Small cell lung cancer Current Visit: Yes Status: Chronic Assessment and plan: Stable. Will follow with [facility] outpatient after discharge. (4) Generalized weakness Current Visit: Yes Status: Acute Assessment and plan: Continue PT/OT after discharge. [facility]. (5) Impaired ambulation Current Visit: Yes Status: Chronic Assessment and plan: Plan as above. (6) Acute and chronic respiratory failure with hypoxia Current Visit: Yes Status: Acute Assessment and plan: Improved Pt is at her normal baseline 2L via n/c, no respiratory distress, lungs clear and diminished. 02 prn (7) Acute pancreatitis Current Visit: Yes Status: Acute Assessment and plan: Continue antiemetics, pain control, supplements. Qualifiers: Pancreatitis type: unspecified pancreatitis type Acute pancreatitis complication: unspecified Qualified Code(s): K85.90 - Acute pancreatitis without necrosis or infection, unspecified (8) Tobacco abuse Current Visit: Yes Status: Chronic Assessment and plan: Continue to encourage smoking cessation. (9) Abnormal finding on CT scan Current Visit: Yes Status: Acute Assessment and plan: CT chest abnormal. Oncology is following. Follow [facility] after discharge Chest CTA 02/08/18 13:40 IMPRESSION: No evidence of pulmonary embolism. There is persistent partial collapse of the medial right upper lobe with soft tissue density in the right suprahilar region. Findings improved compared to prior studies, consistent with known malignancy. There are a few new indeterminate noncalcified nodules measuring up to 9 mm. Findings may represent mixed treatment response with new metastatic disease. D/ / Jessica Winston MD / Jessica Winston MD Interpreting Provider: Jessica Winston MD / 02/12/2018 09:09:52 Zeferino King MD / earnold Interpreting Provider: Zeferino King MD (10) UTI (urinary tract infection) Current Visit: Yes Status: Acute Assessment and plan: Pt with low abdominal pain, nausea, urine indicative of UTI per cath specimen. Culture pending. Pt was treated with IV Rocephin 1 gram x 1 dose, will give pt po antibiotics for home and track culture. Qualifiers: Urinary tract infection type: acute cystitis Hematuria presence: without hematuria Qualified Code(s): N30.00 - Acute cystitis without hematuria - Time Spent With Patient Total time spent is greater than 50% in coordination of care (as documented) at patient's floor/unit and/or counseling patient: less than 15 minutes - Subjective Interval history: Patient seen and assessed at 10:05 AM. Patient was alert, awake, pleasant. She denies any shortness of breath, new cough, chest pain. Patient continues to report that she has abdominal pain in suprapubic area, tender to palpation, but better today. Pt reports bowel movement and is ready to go home. - Constitutional Vitals: Temp Pulse Resp BP Pulse Ox 98.5 F 86 16 150/90 95 02/15/18 10:36 02/15/18 10:36 02/15/18 10:36 02/15/18 10:36 02/15/18 10:36 General appearance: Present: cachectic, cooperative, A&O X 3 (Very dehydrated, dry mucosa), pleasant, no acute distress, underweight, loss of weight, answers questions appropriately - Head Head exam: Present: atraumatic, normal inspection, normocephalic - Eye Eye exam: Present: normal appearance, conjuntiva pink, sclera anicteric - Neck Neck exam general surgery: Present: supple, trachea midline. Absent: lymphadenopathy, tenderness - Respiratory Respiratory exam: Present: CTAB. Absent: accessory muscle use, chest wall tenderness, rales, rhonchi, wheezes - Cardiovascular Cardiovascular exam: Present: RRR, +S1, +S2. Absent: diastolic murmur, gallop, rubs, systolic murmur - GI/Abdominal GI/Abdominal exam: Present: normal bowel sounds, soft, tenderness. Absent: distended, hepatomegaly - Extremities Exam Extremities exam: Present: normal capillary refill, normal inspection, warm, radial pulses palpable and symmetrical. Absent: calf tenderness, cyanotic, pedal edema, tenderness - Neurological Exam Neurological exam: Present: alert, oriented X3, no focal deficits. Absent: facial droop, speech deficit - Skin Skin exam: Present: dry, intact, normal color, warm. Absent: rash Internal Medicine: Result - Labs CBC & Chem 7: 02/15/18 04:41 02/15/18 04:41 Labs: Short CBC 02/15/18 Range/Units 04:41 WBC 9.5 (4.3-11.1) K/mcL Hgb 11.7 (11.5-15.4) g/dL Hct 35.7 (35.3-44.9) % Plt Count 233 (140-400) K/mcL Neutrophils # 8.6 (1.6-8.9) K/mcL BMP 02/15/18 04:41 Sodium 132 L Potassium 4.3 Chloride 100 Carbon Dioxide 26 BUN 15 Creatinine 0.41 L Glucose 88 Calcium 8.4 L Urine 02/14/18 Range/Units 15:25 Urine Color Yellow (Yellow) Urine Clarity Cloudy A (Clear) Urine pH 6.5 (5.0-8.0) pH Units Ur Specific [place] 1.019 (1.010-1.025) Urine Protein Negative (Neg-Trace) mg/dL Urine Glucose (UA) Normal (Normal) mg/dL - ABG Interpretation ABG results: PT/INR, D-dimer PT 11.2 Seconds (9.4-12.1) 02/08/18 13:40 Consult Discharge Plan - Plan Additional Instructions: Follow up with your primary care provider and oncology as scheduled. Return to your normal medications, diet, and activities as tolerated. Return to the emergency department as needed for any other problems or concerns , or if your symptoms return or worsen. Referrals: David Garza MD [Primary Care Provider] - 02/19/18 1:30 pm Prescriptions: Ondansetron ODT [Zofran ODT] 4 mg SL Q4HR PRN #12 tab.rapdis PRN Reason: Nausea Nicotine Patch [Nicoderm] 14 mg TD DAILY PRN #30 patch.td24 PRN Reason: Nicotine Cravings
--- NOTE | 2018-02-15 16:03 | Physician Discharge Referral ---
Home Health/Hosp Referral Info Transfer to: Home Health Provider in Charge Post Discharge: PCP - Diagnosis (1) HTN (hypertension) Priority: Secondary Status: Chronic (2) Protein-energy malnutrition Priority: Secondary Status: Acute (3) Small cell lung cancer Priority: Secondary Status: Chronic (4) Generalized weakness Priority: Secondary Status: Acute (5) Impaired ambulation Priority: Secondary Status: Chronic (6) Acute and chronic respiratory failure with hypoxia Priority: Secondary Status: Acute (7) Acute pancreatitis Priority: Secondary Status: Acute (8) Tobacco abuse Priority: Secondary Status: Chronic (9) Abnormal finding on CT scan Priority: Secondary Status: Acute (10) UTI (urinary tract infection) Priority: Primary Status: Acute - Respiratory Orders Smoking Cessation: Smoking cessation has been advised. For more information, call the [employer] Quit Line at [phone]-NOW. - Diet/Nutrition Diet/Nutrition Orders: Regular - Activity Activity Orders: Up ad domingo - Services Needed Following services are medically necessary services: Nursing, Home Health Aide, Physical Therapy, Occupational Therapy - Transfer Medications Prescriptions: Ondansetron ODT [Zofran ODT] 4 mg SL Q4HR PRN #12 tab.rapdis PRN Reason: Nausea Nicotine Patch [Nicoderm] 14 mg TD DAILY PRN #30 patch.td24 PRN Reason: Nicotine Cravings Sulfamethoxazole/Trimeth DS [Bactrim DS] 1 each PO BID #14 tablet Home Medications: Alendronate Sodium [Fosamax] 70 mg PO HAN 07/26/16 [History] Enalapril Maleate [Vasotec] 10 mg PO BID PRN 07/26/16 [History] Ergocalciferol (VITAMIN D2) [Vitamin D2] 50,000 unit PO WE 07/26/16 [History] Metoprolol Succinate 100 mg PO DAILY PRN 07/26/16 [History] Omeprazole [PriLOSEC] 20 mg PO DAILY 07/26/16 [History] Potassium Chloride [K-Tab ER] 20 meq PO DAILY 07/26/16 [History] Pravastatin Sodium [Pravachol] 20 mg PO HS 07/26/16 [History] Topiramate [Topamax] 25 mg PO HS 07/26/16 [History] clonazePAM [Klonopin] 0.5 mg PO BID PRN 07/26/16 [History] Docusate [Colace] 100 mg PO BID PRN #60 capsule 01/15/18 [Rx] OxyCODONE Immed Rel [Roxicodone 10 MG] 10 mg PO Q3-4H PRN 20 Days #120 tab 01/15 [Rx] Ciprofloxacin [Cipro] 250 mg PO BID #20 tablet 01/19/18 [Rx] Ondansetron [Zofran] 8 mg PO Q8HR PRN 30 Days #90 tablet 01/29/18 [Rx] Melatonin 3 mg PO HS PRN tablet 02/13/18 [Rx] Nicotine Patch [Nicoderm] 14 mg TD DAILY PRN #30 patch.td24 02/13/18 [Rx] Sennosides/Docusate Sodium [Senna Plus] 2 each PO BID PRN tablet 02/13/18 [Rx] Ondansetron ODT [Zofran ODT] 4 mg SL Q4HR PRN #12 tab.rapdis 02/14/18 [Rx] Sulfamethoxazole/Trimeth DS [Bactrim DS] 1 each PO BID #14 tablet 02/15/18 [Rx] Allergies/Adverse Reactions: 3 Allergy/AdvReac Type Severity Reaction Status Date / Time No Known Allergies Allergy Unverified 12/11/17 11:26 Certification: Further, I certify that my clinical findings support that this patient is homebound (i.e. absences from home require considerable and taxing effort and are for medical reasons or faith services or infrequently or short duration when for other reasons) because: Homebound Reason: Patient requires assistance of a person or device to safely leave home Attestation: My signature below is to certify that this patient is under my care and that I, or nurse practitioner, or a physician's library media assistant working with me, has a face-to -face encounter with this patient.
[2018-02-17] MEDS ORDERED: (Alendronate Sodium [Fosamax] 70 MG) PO SCH (07:28)
== END 2018-02-15 16:04 | disposition home health service (06) | DRG 438 ==
LOC: EMEROO 13:36 → 3BNU 13:36 → SUATTDRO 22:53
PROVIDERS: ADMIT Internal Medicine; ATTEND Registered Nurse